=== PATIENT | male | born 1945 | race Caucasian/White ===

== ENCOUNTER 2020-07-09 09:27 | Outpatient (REF) | payer BC, SELFPAY ==
[2020-07-09 11:20] LABS: MANUAL DIFF FLAG NO
[2020-07-09 11:34] LABS: Basophils Percent Auto 0.7 % (0-2); Eosinophils Absolute Auto 0.2 X10*3/uL (0.0-0.4); Eosinophils Percent Auto 3.4 % (0-4); Glucose Urine UA NEG (NEG); Hematocrit 46.2 % (42-52); Hemoglobin 15.6 g/dl (14.0-18.0); Imm Gran Abs Auto 0.01 X10*3/uL (0.00-0.03); Imm Gran Pct Auto 0.2 % (0.0-0.4); Leukocyte Esterase Urine NEG (NEG); Lymphocytes Absolute Auto 1.4 X10*3/uL (1.2-4.9); Lymphocytes Percent Auto 23.3 % (20-40); Mean Corpuscular HGB Conc 33.8 g/dl (31.0-36.0); Mean Corpuscular Hemoglobin 30.3 pg (27.0-33.0); Mean Corpuscular Volume 89.7 fL (80-98); Mean Platelet Volume 10.7 fL (9.4-12.4); Monocytes Absolute Auto 0.5 X10*3/uL (0.1-1.2); Monocytes Percent Auto 8.1 % (2-11); Neutrophils Absolute Auto 3.8 X10*3/uL (2.0-8.3); Neutrophils Percent Auto 64.3 % (45-73); Nitrite Urine NEG (NEG); Platelet Count 247 X10*3/uL (160-400); Red Blood Count 5.15 X10*6/uL (4.60-5.80); Red Cell Distribution Width 12.1 % (11.0-16.0); Urine Blood NEG (NEG); Urine Ketones NEG (NEG); Urine Protein NEG (NEG-TRACE); White Blood Count 5.9 X10*3/uL (4.8-10.8)
[2020-07-09 11:38] LABS: Appearance Urine CLEAR; Color Urine YELLOW
[2020-07-09 11:52] LABS: RBC Urine 0-2 /HPF (0); Squamous Epithelial Cell Urine TRACE /LPF; WBC Urine 0-2 /HPF (0-4)
[2020-07-09 11:59] LABS: Alanine Aminotransferase 39 U/L (0-40); Albumin Level 4.8 g/dL (3.5-5.0); Alkaline Phosphatase 103 U/L (39-117); Anion Gap 13 (12-20); Aspartate Amino Transferase 21 U/L (5-37); Blood Urea Nitrogen 26 mg/dL (9-16); Calcium 9.3 mg/dL (8.4-10.2); Carbon Dioxide 29 mmol/L (22-29); Chloride 107 mmol/L (96-108); Cholesterol 134 mg/dL; Estimated Glomerular Filt Rate > 60; Glucose Fasting 127 mg/dL (60-99); HDL Cholesterol 31 mg/dL; LDL Cholesterol Calculated 87 mg/dl; Potassium 4.2 mmol/L (3.3-5.1); Sodium 145 mmol/L (135-145); Triglycerides 84 mg/dL
[2020-07-09 12:12] LABS: Creatinine Urine 106.52 mg/dL
[2020-07-09 12:23] LABS: Prostate Specific Antigen 4.89 ng/mL (<0.05-4.0); Thyroid Stimulating Hormone 3.33 uIU/mL (0.32-4.0)
[2020-07-09 13:05] LABS: Estimated Average Glucose 151 mg/dL; Hemoglobin A1c % 6.9 %
== END 2020-07-09 09:28 | disposition home or self-care (01) ==
LOC: HO.HMGCLDS 09:27
PROVIDERS: PCP Internal Medicine; Visit Provider Internal Medicine
DX: I10 Essential (primary) hypertension (principal); E78.00 Pure hypercholesterolemia, unspecified; R73.02 Impaired glucose tolerance (oral); R97.20 Elevated prostate specific antigen [PSA]; Z12.5 Encounter for screening for malignant neoplasm of prostate
CPT/HCPCS: 36415; 80053; 80061; 81001; 82043; 83036; 84153; 84443; 85025

== ENCOUNTER 2020-10-01 10:10 | Outpatient (REF) | payer BC, SELFPAY ==
[2020-10-01 11:41] LABS: Estimated Average Glucose 148 mg/dL; Hemoglobin A1c % 6.8 %
[2020-10-01 12:14] LABS: Alanine Aminotransferase 28 U/L (0-40); Albumin Level 4.6 g/dL (3.5-5.0); Alkaline Phosphatase 105 U/L (39-117); Anion Gap 14 (12-20); Aspartate Amino Transferase 18 U/L (5-37); Bilirubin Total 1.1 mg/dL (0.0-1.0); Blood Urea Nitrogen 24 mg/dL (9-16); Calcium 9.5 mg/dL (8.4-10.2); Carbon Dioxide 29 mmol/L (22-29); Chloride 106 mmol/L (96-108); Cholesterol 109 mg/dL; Estimated Glomerular Filt Rate > 60; Glucose Fasting 130 mg/dL (60-99); HDL Cholesterol 31 mg/dL; LDL Cholesterol Calculated 64 mg/dl; Potassium 4.7 mmol/L (3.3-5.1); Sodium 144 mmol/L (135-145); Total Protein 6.8 g/dL (6.5-8.0); Triglycerides 74 mg/dL
[2020-10-01 12:18] LABS: Prostate Specific Antigen 4.88 ng/mL (<0.05-4.0); Thyroid Stimulating Hormone 2.21 uIU/mL (0.32-4.0)
== END 2020-10-01 10:11 | disposition home or self-care (01) ==
LOC: HO.HMGCLDS 10:10
PROVIDERS: PCP Internal Medicine; Visit Provider Internal Medicine
DX: I10 Essential (primary) hypertension (principal); E78.00 Pure hypercholesterolemia, unspecified; R73.02 Impaired glucose tolerance (oral); R97.20 Elevated prostate specific antigen [PSA]; Z12.5 Encounter for screening for malignant neoplasm of prostate
CPT/HCPCS: 36415; 80053; 80061; 83036; 84153; 84443

== ENCOUNTER 2021-04-30 09:14 | Outpatient (REF) | payer BC, SELFPAY ==
[2021-04-30 11:21] LABS: MANUAL DIFF FLAG NO
[2021-04-30 11:24] LABS: Appearance Urine CLEAR; Color Urine STRAW; Glucose Urine UA NEG (NEG); Leukocyte Esterase Urine NEG (NEG); Nitrite Urine NEG (NEG); Specific Gravity - Urine 1.015 (1.005-1.025); Urine Blood NEG (NEG); Urine Ketones NEG (NEG); Urine Protein NEG (NEG-TRACE)
[2021-04-30 11:34] LABS: Basophils Percent Auto 0.3 % (0-2); Eosinophils Absolute Auto 0.1 X10*3/uL (0.0-0.4); Eosinophils Percent Auto 2.4 % (0-4); Hematocrit 46.3 % (42.0-52.0); Hemoglobin 15.5 g/dl (14.0-18.0); Imm Gran Abs Auto 0.02 X10*3/uL (0.00-0.03); Imm Gran Pct Auto 0.3 % (0.0-0.4); Lymphocytes Absolute Auto 1.2 X10*3/uL (1.2-4.9); Lymphocytes Percent Auto 20.5 % (20-40); Mean Corpuscular HGB Conc 33.5 g/dl (31.0-36.0); Mean Corpuscular Hemoglobin 30.2 pg (27.0-33.0); Mean Corpuscular Volume 90.3 fL (80.0-98.0); Mean Platelet Volume 10.3 fL (9.4-12.4); Monocytes Absolute Auto 0.5 X10*3/uL (0.1-1.2); Neutrophils Percent Auto 68.5 % (45-73); Platelet Count 239 X10*3/uL (160-400); Red Blood Count 5.13 X10*6/uL (4.60-5.80); Red Cell Distribution Width 12.2 % (11.0-16.0); White Blood Count 5.8 X10*3/uL (4.8-10.8)
[2021-04-30 11:40] LABS: Estimated Average Glucose 154 mg/dL
[2021-04-30 11:48] LABS: Alanine Aminotransferase 26 U/L (0-40); Albumin Level 4.6 g/dL (3.5-5.0); Alkaline Phosphatase 116 U/L (39-117); Anion Gap 13 (12-20); Aspartate Amino Transferase 17 U/L (5-37); Blood Urea Nitrogen 24 mg/dL (9-16); Calcium 9.7 mg/dL (8.4-10.2); Carbon Dioxide 27 mmol/L (22-29); Chloride 108 mmol/L (96-108); Cholesterol 127 mg/dL; Estimated Glomerular Filt Rate 53; Glucose Fasting 138 mg/dL (60-99); HDL Cholesterol 33 mg/dL; LDL Cholesterol Calculated 75 mg/dl; Potassium 4.3 mmol/L (3.3-5.1); Sodium 144 mmol/L (135-145); Total Protein 7.2 g/dL (6.5-8.0); Triglycerides 99 mg/dL
[2021-04-30 12:00] LABS: RBC Urine 0-2 /HPF (0); WBC Urine 0-2 /HPF (0-4)
[2021-04-30 12:08] LABS: Creatinine Urine 87.22 mg/dL; Microalbum/Creatinine Ratio Ur 14.9 ug/mg cr
[2021-04-30 12:12] LABS: PSA,Total (Free>4and<10) 6.59 ng/mL (0.00-4.00)
[2021-05-02 12:41] LABS: Percent Free Prostate Spec Ag 19 % (calc) (>25); Prostate Specific Ag Total 5.3 ng/mL (< OR = 4.0)
== END 2021-04-30 09:15 | disposition home or self-care (01) ==
LOC: HO.HMGCLDS 09:14
PROVIDERS: PCP Internal Medicine; Visit Provider Internal Medicine
DX: I10 Essential (primary) hypertension (principal); E78.00 Pure hypercholesterolemia, unspecified; R73.02 Impaired glucose tolerance (oral); R97.20 Elevated prostate specific antigen [PSA]; Z12.5 Encounter for screening for malignant neoplasm of prostate
CPT/HCPCS: 36415; 80053; 80061; 81001; 82043; 83036; 84153; 84154; 84443; 85025

== ENCOUNTER 2021-05-01 09:00 | Outpatient (RCR) | payer BC, SELFPAY | END 2021-06-03 09:18 | disposition home or self-care (01) | LOC: HO.PT 09:00 | PROVIDERS: Visit Provider Internal Medicine | DX: M54.16 Radiculopathy, lumbar region (principal) | CPT/HCPCS: 97110; 97140; 97161 ==

== ENCOUNTER 2021-07-29 08:59 | Outpatient (REF) | payer BC, SELFPAY ==
[2021-07-29 11:38] LABS: Appearance Urine HAZY; Color Urine YELLOW; Glucose Urine UA NEG (NEG); Leukocyte Esterase Urine NEG (NEG); Nitrite Urine NEG (NEG); Urine Blood NEG (NEG); Urine Ketones NEG (NEG); Urine Protein NEG (NEG-TRACE)
[2021-07-29 12:03] LABS: Mucus Urine 1+ /LPF; Squamous Epithelial Cell Urine TRACE /LPF; WBC Urine 0-2 /HPF (0-4)
[2021-07-29 12:10] LABS: Alanine Aminotransferase 22 U/L (0-40); Albumin Level 4.3 g/dL (3.5-5.0); Alkaline Phosphatase 102 U/L (39-117); Anion Gap 13 (12-20); Aspartate Amino Transferase 19 U/L (5-37); Bilirubin Total 0.8 mg/dL (0.0-1.0); Blood Urea Nitrogen 20 mg/dL (9-16); Calcium 9.5 mg/dL (8.4-10.2); Carbon Dioxide 27 mmol/L (22-29); Chloride 107 mmol/L (96-108); Estimated Glomerular Filt Rate 58; Glucose Fasting 120 mg/dL (60-99); Potassium 4.4 mmol/L (3.3-5.1); Sodium 143 mmol/L (135-145); Total Protein 6.7 g/dL (6.5-8.0)
[2021-07-29 12:26] LABS: Estimated Average Glucose 146 mg/dL; Hemoglobin A1c % 6.7 %
[2021-07-29 12:33] LABS: PSA,Total (Free>4and<10) 5.29 ng/mL (0.00-4.00)
[2021-07-30 14:42] LABS: Free Prostate Spec Ag 1.1 ng/mL; Percent Free Prostate Spec Ag 24 % (calc) (>25); Prostate Specific Ag Total 4.5 ng/mL (< OR = 4.0)
== END 2021-07-29 09:00 | disposition home or self-care (01) ==
LOC: HO.HMGCLDS 08:59
PROVIDERS: PCP Internal Medicine; Visit Provider Internal Medicine
DX: Z12.5 Encounter for screening for malignant neoplasm of prostate (principal); R97.20 Elevated prostate specific antigen [PSA]; R73.02 Impaired glucose tolerance (oral); R31.29 Other microscopic hematuria
CPT/HCPCS: 36415; 80053; 81001; 83036; 84153; 84154

== ENCOUNTER 2021-10-22 08:31 | Outpatient (REF) | payer BC, SELFPAY ==
[2021-10-22 11:11] LABS: MANUAL DIFF FLAG NO
[2021-10-22 11:36] LABS: Estimated Average Glucose 137 mg/dL; Hemoglobin A1c % 6.4 %
[2021-10-22 11:40] LABS: Appearance Urine CLEAR; Color Urine YELLOW; Glucose Urine UA NEG (NEG); Leukocyte Esterase Urine NEG (NEG); Nitrite Urine NEG (NEG); Specific Gravity - Urine 1.015 (1.005-1.025); Urine Blood NEG (NEG); Urine Ketones NEG (NEG); Urine Protein NEG (NEG-TRACE)
[2021-10-22 11:42] LABS: Basophils Percent Auto 0.5 % (0-2); Eosinophils Absolute Auto 0.2 X10*3/uL (0.0-0.4); Hematocrit 43.3 % (42.0-52.0); Hemoglobin 14.4 g/dl (14.0-18.0); Imm Gran Abs Auto 0.02 X10*3/uL (0.00-0.03); Imm Gran Pct Auto 0.3 % (0.0-0.4); Lymphocytes Absolute Auto 1.4 X10*3/uL (1.2-4.9); Lymphocytes Percent Auto 23.3 % (20-40); Mean Corpuscular HGB Conc 33.3 g/dl (31.0-36.0); Mean Corpuscular Hemoglobin 30.3 pg (27.0-33.0); Mean Platelet Volume 10.5 fL (9.4-12.4); Monocytes Absolute Auto 0.5 X10*3/uL (0.1-1.2); Monocytes Percent Auto 8.9 % (2-11); Neutrophils Absolute Auto 3.8 x10*3/uL (2.0-8.3); Platelet Count 203 X10*3/uL (160-400); Red Blood Count 4.76 X10*6/uL (4.60-5.80); Red Cell Distribution Width 12.2 % (11.0-16.0)
[2021-10-22 11:47] LABS: Alanine Aminotransferase 24 U/L (0-40); Albumin Level 4.5 g/dL (3.5-5.0); Alkaline Phosphatase 95 U/L (39-117); Anion Gap 16 (12-20); Aspartate Amino Transferase 19 U/L (5-37); Bilirubin Total 0.9 mg/dL (0.0-1.0); Blood Urea Nitrogen 31 mg/dL (9-16); Calcium 9.8 mg/dL (8.4-10.2); Carbon Dioxide 23 mmol/L (22-29); Chloride 106 mmol/L (96-108); Cholesterol 124 mg/dL; Estimated Glomerular Filt Rate 48; Glucose Fasting 129 mg/dL (60-99); HDL Cholesterol 30 mg/dL; LDL Cholesterol Calculated 78 mg/dl; Potassium 4.5 mmol/L (3.3-5.1); Sodium 140 mmol/L (135-145); Total Protein 7.1 g/dL (6.5-8.0); Triglycerides 84 mg/dL
[2021-10-22 11:59] LABS: PSA,Total (Free>4and<10) 6.54 ng/mL (0.00-4.00); Thyroid Stimulating Hormone 3.04 uIU/mL (0.32-4.0); Vitamin D 25-OH Total 30.7 ng/mL (>30)
[2021-10-22 12:05] LABS: RBC Urine 0 /HPF (0); Renal Epithelial Cells Urine TRACE /LPF; Squamous Epithelial Cell Urine TRACE /LPF; WBC Urine 0 /HPF (0-4)
[2021-10-22 12:06] LABS: Microalbum/Creatinine Ratio Ur 11.3 ug/mg cr
[2021-10-23 11:41] LABS: Free Prostate Spec Ag 1.7 ng/mL; Percent Free Prostate Spec Ag 24 % (calc) (>25); Prostate Specific Ag Total 7.1 ng/mL (< OR = 4.0)
== END 2021-10-22 08:32 | disposition home or self-care (01) ==
LOC: HO.HMGCLDS 08:31
PROVIDERS: PCP Internal Medicine; Visit Provider Internal Medicine
DX: Z12.5 Encounter for screening for malignant neoplasm of prostate (principal); I10 Essential (primary) hypertension; E78.00 Pure hypercholesterolemia, unspecified; R73.02 Impaired glucose tolerance (oral); R97.20 Elevated prostate specific antigen [PSA]
CPT/HCPCS: 36415; 80053; 80061; 81001; 82043; 82306; 83036; 84153; 84154; 84443; 85025

== ENCOUNTER 2022-01-31 09:28 | Inpatient (IN) | payer MEDICARE, BC, SELFPAY ==
[2022-01-31] VITALS (7 sets, daily range): BP systolic 94–119; BP diastolic 45–65; PULSE 92–116; RESP 16–20; TEMP 36.4–36.6; O2SAT 95–100; BMI 25.0
--- NOTE | ~2022-01-31 | CT_ITS ---
EXAMINATION: CT-GUIDED DRAINAGE CT-GUIDED BIOPSY CLINICAL INFORMATION: Left upper quadrant mass and ascites. COMPARISON: Previous CT of the abdomen and pelvis 01/31/2022. TECHNIQUE: The procedure risks and benefits including bleeding, infection and injury to adjacent organs or bowel is discussed with the patient and informed consent was obtained. Axial images through the abdomen were performed. The left lateral lower abdomen was prepped and draped in a cyst in the usual sterile fashion. The skin and soft tissues were anesthetized with 1% lidocaine plain. Using CT guidance and a 5 Telugu Yueh needle, access to the ascitic fluid was obtained and 2 L of serosanguineous fluid was removed. Specimen was sent for cytology, flow cytometry and microbiology studies. The left upper quadrant was prepped and draped in the usual sterile fashion. The skin and soft tissues were anesthetized with 1% lidocaine plain. Using CT guidance and a coaxial system, access to the left upper quadrant mass was obtained. Two 20-gauge core biopsies were obtained and placed in formalin and flow cytometry solution. There was brisk bleeding following a second core biopsy and additional samples were not obtained. Hemostasis was achieved using 2 Gelfoam pledgets. The patient received Versed 2 mg and fentanyl 100 mcg intravenously during the procedure. Total sedation time was 23 minutes. Conscious sedation was provided by registered nurse under my direct supervision with continuous hemodynamic monitoring. Patient dose 277 mGy-cm. FINDINGS: There is a left upper quadrant mass inseparable from the stomach spleen and pancreas. There is retroperitoneal lymphadenopathy. There is a moderate amount of ascites. There is a tiny gallstone. There is a left renal stone. Postprocedure imaging demonstrated interval decrease in ascites. No evidence of hemorrhage post left upper quadrant biopsy is seen. CT/CT biopsy abdomen percutaneous IMPRESSION: CT guided paracentesis and left upper quadrant biopsy.
--- NOTE | ~2022-01-31 | CT_ITS ---
EXAMINATION: CT ABDOMEN AND PELVIS WITHOUT CONTRAST CLINICAL INFORMATION: Diffuse abdominal pain. COMPARISON: May 03, 2009. TECHNIQUE: Multidetector volumetric imaging was performed from the superior aspect of the liver through the pubic symphysis. Sagittal and coronal reformatted images were obtained on the technologist's workstation. This CT examination was performed using dose optimization techniques as appropriate, variously including the following: *Automated exposure control *Adjustment of mA and/or kV according to patient size (this includes techniques or standardized protocols for targeted exams where dose is matched to indication/reason for exam; i.e. extremities or head) *Use of iterative reconstruction technique DLP: 602 mGy-cm FINDINGS: Limited by lack of oral and intravenous contrast as well as by motion. LUNG BASES: The lung bases appear clear, with no evidence of inflammation or nodules. LIVER, GALLBLADDER, AND BILIARY TREE: The liver appears unremarkable in size, shape, and attenuation. No focal hepatic lesion or biliary ductal dilatation is appreciated. Unremarkable appearance of the gallbladder. PANCREAS/SPLEEN/GASTROINTESTINAL TRACT/MESENTERY/PERITONEAL CAVITY/LYMPH NODES: Roughly 18 x 15 x 12 cm, lobulated, poorly defined left upper quadrant mass, not well evaluated on this noncontrast study. There are loss of fat planes between the mass, spleen, body and tail the pancreas, and gastric fundus. The epicenter of the mass appears located in the retroperitoneum in the region of the splenic hilum/posterior aspect of the tail the pancreas. There or in innumerable peritoneal and omental implants as well as omental caking throughout the abdomen. There is a small to moderate amount of ascites. Significant adenopathy is most notable in the para-aortic region, with a para-aortic node measuring up to approximately 3.8 cm in short axis (image 41, series 3). Sigmoid and descending colonic diverticulosis without obvious evidence of diverticulitis. Normal-appearing distal ileum. Nonspecific submucosal fat involving the ascending colon and hepatic flexure. ADRENAL GLANDS: Unremarkable KIDNEYS AND URETERS: The kidneys appear unremarkable in size, shape, and attenuation. Bilateral, punctate, nonobstructing renal collecting system stones. No evidence of hydronephrosis or hydroureter on either side. Nonspecific bilateral perinephric stranding. BLADDER: Unremarkable ABDOMINAL WALL: Right inguinal hernia containing a small amount of fluid and possible soft tissue density/mass. VASCULAR: Unremarkable PELVIC VISCERA: Moderately enlarged prostate, incompletely imaged. OSSEOUS STRUCTURES: Unremarkable CT/CT abdomen pelvis wo IV con IMPRESSION: Limited by lack of oral and intravenous contrast as well as by motion. Extensive malignant disease within the abdomen as detailed above. Findings include a large 18 x 15 x 12 cm, lobulated, poorly defined left upper quadrant mass with loss of fat planes between the mass, spleen, body and tail the pancreas, and gastric fundus. The epicenter of the mass appears located in the retroperitoneum in the region of the splenic hilum/posterior aspect of the tail the pancreas. Innumerable peritoneal and omental implants as well as omental caking throughout the abdomen. Adenopathy. Small to moderate amount of ascites. Right inguinal hernia containing a small amount of fluid and possible soft tissue density/mass.
[2022-01-31 11:32] LABS: MANUAL DIFF FLAG NO
[2022-01-31 11:33] LABS: Basophils Absolute Auto 0.1 X10*3/uL (0.0-0.2); Basophils Percent Auto 0.5 % (0-2); Eosinophils Absolute Auto 0.1 X10*3/uL (0.0-0.4); Eosinophils Percent Auto 1.1 % (0-4); Hematocrit 41.1 % (42.0-52.0); Hemoglobin 13.6 g/dl (14.0-18.0); Imm Gran Abs Auto 0.05 X10*3/uL (0.00-0.03); Imm Gran Pct Auto 0.4 % (0.0-0.4); Lymphocytes Absolute Auto 0.7 X10*3/uL (1.2-4.9); Lymphocytes Percent Auto 6.2 % (20-40); Mean Corpuscular HGB Conc 33.1 g/dl (31.0-36.0); Mean Corpuscular Hemoglobin 29.8 pg (27.0-33.0); Mean Corpuscular Volume 89.9 fL (80.0-98.0); Mean Platelet Volume 9.7 fL (9.4-12.4); Monocytes Percent Auto 8.9 % (2-11); Neutrophils Absolute Auto 9.6 x10*3/uL (2.0-8.3); Neutrophils Percent Auto 82.9 % (45-73); Platelet Count 386 X10*3/uL (160-400); Red Blood Count 4.57 X10*6/uL (4.60-5.80); Red Cell Distribution Width 12.6 % (11.0-16.0); White Blood Count 11.6 X10*3/uL (4.8-10.8)
--- NOTE | 2022-01-31 11:53 | ED_ITS ---
HPI - General Adult General Chief complaint: General Medical Stated complaint: lymphoma/not eating or drinking Time Seen by Provider: 01/31/22 11:53 Source: patient Mode of arrival: ambulatory Limitations: no limitations History of Present Illness HPI narrative: 76-year-old male past medical history significant for hypertension presenting to the emergency department with complaints of weakness, fatigue, poor p.o. intake x1 week. patient tells me he has not been feeling well and he has been sleeping throughout the majority of the day. He tells me his last normal meal was about a week ago. He tells me he does not have much of an appetite and he feels extremely weak. He reports night sweats that drenched his bed. Reports a 5 lb weight loss in 2 weeks. He also reports that he feels like his abdomen i s bloated. He tells me that he recently had a CT scan of the abdomen which showed retroperitoneal mass that abrupt the pancreas and may invade the spleen. He tells me he is scheduled for a biopsy on Wednesday. He is followed by [facility]. Patient tells me he is really not feeling himself and he feels awful. He is accompanied by his who helps provide some history. Patient denies chest pain, shortness of breath, nausea, vomiting, , headache, dizziness. He tells me he usually has a very active lifestyle however over the past few weeks he has been very sedentary. Related Data Allergies Allergy/AdvReac Type Severity Reaction Status Date / Time Unable to Assess Allergy Unverified 01/31/22 12:26 Review of Systems Review of Systems: Constitutional : No Weight loss, No Fever, No Chills, + Fatigue, + Malaise ENT/Mouth : No sore throat, No Rhinorrhea Eyes: No Eye Pain, No Swelling, No Redness Cardiovascular : No Chest Pain, No SOB, No Dyspnea on Exertion, No Orthopnea, No Edema, No Palpitations Respiratory : No Cough, No Sputum, No Wheezing Gastrointestinal : No Nausea, No Vomiting, No Diarrhea, No Constipation, + abdominal Pain/ bloating, No Hematochezia, No Melena Genitourinary : No Dysuria, No Urinary Frequency, No Hematuria, Musculoskeletal : No joint pain, No Myalgias, No Joint Swelling Skin : No Skin Lesions, No rash Neuro : + Weakness, No Numbness, No Dizziness, No Headache Psych : No Anxiety/Panic, No Depression All other systems reviewed and are negative Yes all other systems are reviewed and are negative [facility] Past Medical History Attestation statement: The following information was validated with the patient. Source: old records reviewed and nursing notes reviewed Medical History (Updated 01/31/22 @ 14:29 by CELESTE Boucher) HTN (hypertension) Hyperlipemia Surgical History (Updated 01/31/22 @ 13:02 by Paola Pino RN) History of prostate biopsy Social History Social History Patient Tobacco Use Status: Never used Tobacco Use of substances other than those prescribed or required for medical reasons: No Advance Directives: Yes Advance Directives Information Provided: Yes Advance Directives on File: No Physical Exam ED Vital Signs: Vital Signs - 24 hr 01/31/22 09:32 01/31/22 13:03 01/31/22 14:28 Temperature 98 F Pulse Rate 116 H 102 H 97 Respiratory Rate 19 18 18 Blood Pressure 119/61 115/65 113/60 Pulse Oximetry 98 95 96 Oxygen Delivery Method Room Air Room Air Room Air BMI result Body Mass Index 25.0 vss Appearance: Alert.? Oriented X3.? No acute distress.? Head: Normocephalic, atraumatic, no step-offs or deformities Eyes: Pupils equal, round and reactive to light.? ENT: Pharynx normal.? Neck: Normal inspection.? Neck supple.? CVS: Normal heart rate and rhythm.? Pulses normal.? Respiratory: No respiratory distress.? Breath sounds normal.? Abdomen: Soft and + difusley tender and bloated. Normal BS? Skin: Skin warm and dry.? Normal skin color.? Normal skin turgor.? Extremities: No lower extremity edema.? No calf ttp. 5/5 strength to bilateral upper and lower extremities Back: No midline tenderness, no C-spine tenderness, full range of motion, no CVA tenderness bilaterally Neuro: Oriented X 3.? No motor deficit.? No sensory deficit. CN 2-12 intact Course Reevaluation(s) Reevaluation #1: Patient is noted to have a slight leukocytosis and a very mild normocytic anemia. potassium is noted to be elevated at 6.2, low, will be given at this time. Patient is noted to have a an anion gap of 28, likely secondary to poor p.o. intake, dehydration. Patient is also noted to have a significantly elevated BUN and creatinine concerning for acute kidney injury likely secondary to dehydration. Calcium and lipase is also noted to be elevated. CT of abdomen and pelvis and UA pending. Time: 12:44 Reevaluation #2: CT of the abdomen with concerns for maligancy TT out to Dr. Acosta Oncology. Plan is to admit patient for malaise, fatigue, ARYA, new malignancy. Time: 14:37 Reevaluation #3: TT from Dave recommends adding tumor markers CA 19/19, CEA, LDH and PSA . Also recommends IR guided biopsy, hospitalist will put this order in. Time: 14:52 Medical Decision Making [facility] Narrative Medical decision making narrative: 1156 76-year-old male presents with feelings of dehydration, decreased p.o. intake I requested records from [facility] to obtain more information on this patient with patient consent. Physical examination is significant for diffusely tender abdomen, with bloating. Plan at this time is to obtain basic labs, urine, COVID test. Will rule out electrolyte abnormalities. I suspect this is dehydration concern for mass or malignancy. Medical Records Medical records reviewed: Yes I reviewed the patient's medical records. Lab Data Lab results reviewed: Yes I reviewed the patient's lab results. Result diagrams: 01/31/22 11:29 01/31/22 11:29 Labs: Lab Results 01/31/22 01/31/22 Range/Units 11:29 11:29 WBC 11.6 H (4.8-10.8) X10*3/uL RBC 4.57 L (4.60-5.80) X10*6/uL Hgb 13.6 L (14.0-18.0) g/dl Hct 41.1 L (42.0-52.0) % MCV 89.9 (80.0-98.0) fL MCH 29.8 (27.0-33.0) pg MCHC 33.1 (31.0-36.0) g/dl RDW 12.6 (11.0-16.0) % Plt Count 386 D (160-400) X10*3/uL MPV 9.7 (9.4-12.4) fL Immature Gran % (Auto) 0.4 (0.0-0.4) % Neut % (Auto) 82.9 H (45-73) % Lymph % (Auto) 6.2 L (20-40) % [place] % (Auto) 8.9 (2-11) % Eos % (Auto) 1.1 (0-4) % Baso % (Auto) 0.5 (0-2) % Lymph # (Auto) 0.7 L (1.2-4.9) X10*3/uL [place] # (Auto) 1.0 (0.1-1.2) X10*3/uL Eos # (Auto) 0.1 (0.0-0.4) X10*3/uL Baso # (Auto) 0.1 (0.0-0.2) X10*3/uL Abs Immat Gran (auto) 0.05 H (0.00-0.03) X10*3/uL Absolute Neuts (auto) 9.6 H (2.0-8.3) x10*3/uL Absolute Nucleated RBC 0.000 (0.0-0.012) X10*3/uL Nucleated RBC % (auto) 0.0 (0.0-0.2) /100WBC Sodium 140 (135-145) mmol/L Potassium 6.2 H* D (3.3-5.1) mmol/L Chloride 102 (96-108) mmol/L Carbon Dioxide 16 L (22-29) mmol/L Anion Gap 28 H (12-20) BUN 71 H D (9-16) mg/dL Creatinine 3.03 H (0.5-1.4) mg/dL Estim Creat Clear Calc 23.4 Estimated GFR 20 Random Glucose 117 H (60-115) mg/dL Calcium 13.3 H* D (8.4-10.2) mg/dL Total Bilirubin 0.6 (0.0-1.0) mg/dL Direct Bilirubin 0.3 (0.0-0.5) mg/dL AST 44 H D (5-37) U/L ALT 30 (0-40) U/L Alkaline Phosphatase 139 H D (39-117) U/L Total Protein 6.7 (6.5-8.0) g/dL Albumin 4.0 (3.5-5.0) g/dL Lipase 91 H (8-78) U/L Critical Care Time Critical Care Time Critical Care Time: Yes Total Critical Care Time: 60 Attestation: I attest to this time spent taking care of the patient, obtaining history, physical, reviewing labs, imaging, speaking to my attending, speaking to specialist. Discharge Plan Discharge Clinical Impression: ARYA (acute kidney injury), Acute hyperkalemia, Dehydration, Abdominal mass, Poor nutrition Patient Disposition: Admitted As Inpatient
[2022-01-31 12:09] LABS: Alanine Aminotransferase 30 U/L (0-40); Alkaline Phosphatase 139 U/L (39-117); Anion Gap 28 (12-20); Aspartate Amino Transferase 44 U/L (5-37); Bilirubin Direct 0.3 mg/dL (0.0-0.5); Bilirubin Total 0.6 mg/dL (0.0-1.0); Blood Urea Nitrogen 71 mg/dL (9-16); Calcium 13.3 mg/dL (8.4-10.2); Carbon Dioxide 16 mmol/L (22-29); Chloride 102 mmol/L (96-108); Creatinine Clr Calc Pharmacy 23.4; Estimated Glomerular Filt Rate 20; Glucose Random 117 mg/dL (60-115); Lipase 91 U/L (8-78); Potassium 6.2 mmol/L (3.3-5.1); Sodium 140 mmol/L (135-145); Total Protein 6.7 g/dL (6.5-8.0)
--- NOTE | 2022-01-31 12:27 | ECG_ITS ---
Test Reason : cp Blood Pressure : / mmHG Vent. Rate : 100 BPM Atrial Rate : 100 BPM P-R Int : 132 ms QRS Dur : 130 ms QT Int : 378 ms P-R-T Axes : 053 021 -03 degrees QTc Int : 487 ms Normal sinus rhythm Right bundle branch block Abnormal ECG No previous ECGs available Referred By: Carlos Reese Electronically Signed By:MIKE HENDERSON
[2022-01-31] MEDS: 0.9 % Sodium Chloride 1,000 ML 999 ML IV ×2 (13:08→14:26)
[2022-01-31] MEDS: Sodium Zirconium Cyclosilicate 10 GM POWD.PACK PO (13:11)
[2022-01-31 15:02] LABS: VBG Base Excess -7.9 mmol/L; VBG HCO3 15 mmol/L (22-26); VBG pCO2 27 mmHg; VBG pH 7.36 (7.32-7.43); VBG pO2 67 mmHg
[2022-01-31 15:04] LABS: Venous Blood Gas Refer to POC result
--- NOTE | 2022-01-31 15:06 | PHA.MEDREC ---
Pharmacy Consult ? Medication Reconciliation Pharmacy has completed the medication reconciliation.
[2022-01-31 15:47] LABS: Carcinoembryonic Antigen < 0.50 ng/mL; Prostate Specific Antigen 11.27 ng/mL (<0.05-4.0)
--- NOTE | 2022-01-31 15:53 | PM.IMHP ---
History of Present Illness Date of Service: 01/31/22 Attending physician on admission: Eva Tellez Chief Complaint: ARYA, hyperkalemia, retroperitoneal mass 76 year old patient with history significant for htn with ckd stage 3, hld, and elevated psa as well as large retroperitoneal mass suggestive of lymphoma requiring biopsy presented to the ED today at the recommendation of PCP for evaluation of malaise, subjective fevers, sweats, unintentional weight loss 5 pounds, decreased oral intake ongoing for about 2 weeks. Pt has been following with urologist (Ute SOOD) for elevated PSA of 7.1 which pt reports has improved. Has negative prostate bx in 2019. Has had MRI abd/pelvis that was negative for prostate cancer. Then had follow up U/S abd 12/23/21 at [facility] showing multiple circumscribed hypoechoic masses scattered throughout the liver. Follow up CT abd w/ IV contrast 01/01 showed 11.9 x 6.7 x 6.8 cm retroperitoneal mass abutting the pancreas and abutting/possibly invading the spleen as well as addl splenic lesions and left-soded para-aortic adenopathy. Given the appearance lymphoma is favored, but biopsy is recommended . He was scheduled to have biopsy this upcoming Wednesday at [facility]. In the ED, CT abd/pelvis repeated showing CT abd/pelvis showing extensive metastatic disease within the abdomen including 18cm x 15cm x 12cm, lobulated, poorly defined LUQ mass with loss of fat planes between the mass, spleen, and body/tail of the pancreas, and gastric fundus. Epicenter of the mass appears to be located in the retroperitoneum in razia region of the splenic hylum/posterior aspect of the tail of the pancreas. Innumerable peritoneal and omental ikmplants as well as omental caking throughout the abdomen implants. Small to moderate ascites. Patient also found to have ARYA with Creat 3.03 and BUN 71. K 6.2, calcium 13.3. Alk phos 139. AG 28. VBG normal. Received 2L IVF in ED and lokelpr. LDH 1960. Review of Systems Review of Systems: General: +fever, +chills/sweats, +unintentional weight loss., +malaise Cardiovascular: No chest pain, palpitations, or leg edema Respiratory: No shortness of breath, wheezing, cough GI: No abdominal pain, nausea, vomiting, diarrhea, constipation, melena, hematochezia : No dysuria, hematuria, decreased urinary output, weak stream MSK: No pain Neuro: No headaches, weakness, paresthesias Skin: No rashes or lesions [facility] Medical History HTN (hypertension) Hyperlipemia Surgical History History of prostate biopsy Social History Patient Tobacco Use Status: Never used Tobacco Use of substances other than those prescribed or required for medical reasons: No Advance Directives: Yes Advance Directives Information Provided: Yes Advance Directives on File: No service: Yes Current occupational status: retired [employer] Allergies Allergy/AdvReac Type Severity Reaction Status Date / Time Unable to Assess Allergy Unverified 01/31/22 12:26 Active Medications: Current Medications Acetaminophen (Acetaminophen Supp 650 Mg Supp.Rect) 650 mg HI Q6H PRN PRN Reason: Pain, Mild (Pain Scale 1-3) Heparin Sodium (Porcine) (Heparin Sodium,Porcine 5,000 Unit/Ml Vial) 5,000 unit SUBCUT Q12H RYLEE Sodium Chloride (Ns) 1,000 mls @ 125 mls/hr IVCONT .Q8H RYLEE Ondansetron HCl (Ondansetron Hcl 4 Mg/2 Ml Vial) 4 mg IVPUSH Q8H PRN PRN Reason: Nausea and Vomiting Home Medications Medication Instructions Recorded Confirmed Last Taken Type atorvastatin 40 mg tablet 1 tab PO DAILY 02/01/22 02/01/22 Unknown History lisinopril 20 mg tablet 1 tab PO DAILY 02/01/22 02/01/22 Unknown History Physical Exam Vital Signs and Narrative: Vital Signs: Last Vital Signs Temp 98 F 01/31/22 09:32 Pulse 97 01/31/22 14:28 Resp 18 01/31/22 14:28 BP 113/60 01/31/22 14:28 Pulse Ox 96 01/31/22 14:28 O2 Del Method 01/31/22 14:28 BMI result Body Mass Index 25.0 Constitutional - Awake and Alert, No apparent distress Eyes - PERRLA, EOMI Cardiovascular - S1S2, RRR, No edema Respiratory - Normal lung expansion, Normal respiratory effort, No respiratory distress, CTA bilaterally Gastrointestinal - Mild abdominal distention with fluid wave. NT; +BS; No rebound or guarding Extremities - no calf tenderness bilaterally, no swelling Musculoskeletal - Normal inspection, normal ROM Skin - Warm/Dry Neurological - Alert & oriented x3, No focal deficit Psychological - Appropriate affect Results Labs CBC and Chem 7: 01/31/22 11:29 02/01/22 06:37 Labs: Laboratory Results - last 24 hr 01/31/22 01/31/22 01/31/22 11: 11:29 14:56 MCV 89.9 MCH 29.8 MCHC 33.1 RDW 12.6 Plt Count 386 D MPV 9.7 Immature Gran % (Auto) 0.4 Neut % (Auto) 82.9 H Lymph % (Auto) 6.2 L [place] % (Auto) 8.9 Eos % (Auto) 1.1 Baso % (Auto) 0.5 Lymph # (Auto) 0.7 L [place] # (Auto) 1.0 Eos # (Auto) 0.1 Baso # (Auto) 0.1 Abs Immat Gran (auto) 0.05 H Absolute Neuts (auto) 9.6 H Absolute Nucleated RBC 0.000 Nucleated RBC % (auto) 0.0 VBG pH 7.36 VBG pCO2 27 VBG pO2 67 VBG HCO3 15 L VBG O2 Saturation 92.0 VBG Base Excess -7.9 Anion Gap 28 H Estim Creat Clear Calc 23.4 Estimated GFR 20 Random Glucose 117 H Calcium 13.3 H* D Total Bilirubin 0.6 Direct Bilirubin 0.3 AST 44 H D ALT 30 Alkaline Phosphatase 139 H D Lactate Dehydrogenase 1924 H Total Protein 6.7 Albumin 4.0 Lipase 91 H Carcinoembryonic Ag < 0.50 Prostate Specific Ag 11.27 H Imaging Radiologist's Impressions: Impressions Abdomen/Pelvis CT 01/31/22 12:48 IMPRESSION: Limited by lack of oral and intravenous contrast as well as by motion. Extensive malignant disease within the abdomen as detailed above. Findings include a large 18 x 15 x 12 cm, lobulated, poorly defined left upper quadrant mass with loss of fat planes between the mass, spleen, body and tail the pancreas, and gastric fundus. The epicenter of the mass appears located in the retroperitoneum in the region of the splenic hilum/posterior aspect of the tail the pancreas. Innumerable peritoneal and omental implants as well as omental caking throughout the abdomen. Adenopathy. Small to moderate amount of ascites. Right inguinal hernia containing a small amount of fluid and possible soft tissue density/mass. 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 1-Hyperkalemia- secondary to ARYA. K 6.2 in ED -Received lokelma in ED -No peaked T waves on EKG -Ordered 5 units regular insulin, 1 amp D50, 10mg albuterol -Recheck K and follow BMP daily -Renal consulted 2-Hypercalcemia- secondary to ARYA vs metastatic disease -PTH-I, PTH related peptide, and VIt D level ordered -UA ordered 3-ARYA- secondary to dehydration from poor PO intake -Received 2L IVF in ED -Contineu IVF -Follow BMP -Renal consulted 4-Retroperitoneal mass- CT abd/pelvis showing extensive metastatic disease within the abdomen including 18cm x 15cm x 12cm, lobulated, poorly defined LUQ mass with loss of fat planes between the mass, spleen, and body/tail of the pancreas, and gastric fundus. Epicenter of the mass appears to be located in the retroperitoneum in razia region of the splenic hylum/posterior aspect of the tail of the pancreas. Innumerable peritoneal and omental ikmplants as well as omental caking throughout the abdomen implants. Small to moderate ascites. -TT with Dr. Acosta. Tumor markers ordered. Ct guided bx with IR ordered for wednesday. NPO after midnight Wednesday. -LDH significantly elevated at 1960 suggestive of tumor lysis. Uric acid 25.5. Phosphorus 6.8. Rasburicase ordered. Monitor BMP, phosphorus, and uric acid every 6 hours 5-HTN- stable -Hold lisinopril 6-HLD -Continue atorvastatin DVT prophylaxis- heparin Full code Pt requires inpt stay of at least 2 midnights for management of ARYA with electrolyte abnormality for IV fluids and close monitoring for elevtrolyte abnormality as pt is as risk for cardiac arrhythmia and shows evidence of tumor lysis. Quality Stroke Does the patient have a stroke diagnosis?: No VTE Prior VTE?: No VTE Risk Level:: Medical - moderate - high VTE Device Contraindication: Treatment Not Indicated VTE Drug Contraindication: N/A - Med Ordered
[2022-01-31] MEDS: Albuterol Sulfate 7.5 MG, Albuterol Sulfate (0.083%) 2.5 MG 10 MG INHALE (15:57)
[2022-01-31] MEDS: Heparin Sodium,Porcine 5,000 UNIT/ML VIAL 5000 UNIT SUBCUT (16:09)
[2022-01-31 16:12] LABS: Lactate Dehydrogenase 1960 U/L (118-273); Phosphorus 6.8 mg/dL (2.7-4.5); Uric Acid 25.5 mg/dL (3.4-7.0)
[2022-01-31] MEDS: 0.9 % Sodium Chloride 1,000 ML 125 ML IVCONT (16:15)
[2022-01-31] MEDS: Insulin Regular, Human 100 UNIT/ML 3 ML VIAL IVPUSH (16:21)
[2022-01-31] MEDS: Dextrose 50 % 25 GM/50 ML SYRINGE IVPUSH (16:22)
--- NOTE | 2022-01-31 16:32 | P.EN_ITS ---
Event Note Date of Service: 02/01/22 Event Note: Addendum to history and physical by mid-level provider CELESTE Minor. I interviewed and examined the patient. I discussed their presentation and management with the mid-level provider. I reviewed the history and physical and agree with the documentation, with the following additions and corrections: 76yo M with known retroperitoneal mass + B-symptoms presenting with weakness/fatigue/anorexia. CT shows a large retroperitoneal mass that has grown to 18 cm from 11 cm back in October at [facility]. He was scheduled for outpt biopsy at [facility] on 02/02 but is found to have features concerning for spontaneous TLS: hyperK (6.2), hyperPO4 (6.8), LDH 1960, marked hyperuricemia (25.5), and ARYA with SCr 3.03. Also moderately hypercalcemic (13.3). Discussed with on-call oncologist Dr Acosta. Plan [place] [facility] Will give aggressive IV hydration + IV rasburicase. Monitor BMP, phosphorous, uric acid 6hr after rasburicase and again in AM. Consult Nephrology. CT-guided biopsy for Friday 02/02.
[2022-01-31 16:49] LABS: Anion Gap 26 (12-20); Blood Urea Nitrogen 70 mg/dL (9-16); Calcium 12.2 mg/dL (8.4-10.2); Carbon Dioxide 16 mmol/L (22-29); Chloride 107 mmol/L (96-108); Creatinine Clr Calc Pharmacy 25.6; Estimated Glomerular Filt Rate 23; Glucose Random 99 mg/dL (60-115); Potassium 5.5 mmol/L (3.3-5.1); Sodium 143 mmol/L (135-145)
[2022-01-31 17:13] LABS: Vitamin D 25-OH Total 19.2 ng/mL (>30)
[2022-01-31] MEDS: Rasburicase 6 MG in 0.9 % Sodium Chloride 46 ML 100 MG IV (18:14)
--- NOTE | 2022-01-31 22:30 | ECG_ITS ---
Test Reason : LOW BP Blood Pressure : / mmHG Vent. Rate : 097 BPM Atrial Rate : 097 BPM P-R Int : 138 ms QRS Dur : 134 ms QT Int : 378 ms P-R-T Axes : 149 -27 -27 degrees QTc Int : 480 ms Normal sinus rhythm Right bundle branch block Abnormal ECG When compared with ECG of 31-JAN-2022 14:20, No significant change was found Referred By: Lindsay Minor Electronically Signed By:MIKE HENDERSON
[2022-01-31] MEDS: Lactated Ringers 1,000 ML 999 ML IV (22:37)
[2022-01-31 22:41] LABS: COVID-19 Test Negative (Negative); IDNOW Serial# 16C4AD1C
[2022-02-01] MEDS: 0.9 % Sodium Chloride 1,000 ML 125 ML IVCONT ×3 (00:03→16:41)
[2022-02-01 01:08] LABS: Appearance Urine Clear; Color Urine Yellow; Glucose Urine UA Negative (Negative); Leukocyte Esterase Urine Trace (Negative); Nitrite Urine Negative (Negative); Specific Gravity - Urine 1.015 (1.005-1.025); Urine Blood Negative (Negative); Urine Ketones Negative (Negative); Urine Protein Negative (Neg-Trace)
[2022-02-01 01:23] LABS: Bacteria Urine None Seen (None Seen); RBC Urine 0-2 /HPF (0-2); Squamous Epithelial Cell Urine 0-2 /HPF (0-2)
[2022-02-01 01:27] LABS: Anion Gap 23 (12-20); Blood Urea Nitrogen 71 mg/dL (9-16); Calcium 11.4 mg/dL (8.4-10.2); Carbon Dioxide 18 mmol/L (22-29); Chloride 106 mmol/L (96-108); Creatinine Clr Calc Pharmacy 25.6; Estimated Glomerular Filt Rate 23; Glucose Random 97 mg/dL (60-115); Phosphorus 5.1 mg/dL (2.7-4.5); Potassium 4.9 mmol/L (3.3-5.1); Sodium 142 mmol/L (135-145)
[2022-02-01] MEDS: Heparin Sodium,Porcine 5,000 UNIT/ML VIAL 5000 UNIT SUBCUT (03:58)
[2022-02-01 04:00] VITALS: BP 120/67; PULSE 99; RESP 16; TEMP 36.6; O2SAT 98
[2022-02-01 07:22] LABS: Anion Gap 21 (12-20); Blood Urea Nitrogen 70 mg/dL (9-16); Calcium 11.5 mg/dL (8.4-10.2); Carbon Dioxide 18 mmol/L (22-29); Chloride 108 mmol/L (96-108); Creatinine Clr Calc Pharmacy 27.1; Estimated Glomerular Filt Rate 24; Glucose Random 88 mg/dL (60-115); Phosphorus 4.7 mg/dL (2.7-4.5); Potassium 5.1 mmol/L (3.3-5.1); Sodium 142 mmol/L (135-145)
[2022-02-01 07:26] LABS: Uric Acid for Rasburicase 14.5 mg/dL
[2022-02-01 07:44] VITALS: BP 136/71; PULSE 104; RESP 18; O2SAT 97
[2022-02-01 07:49] LABS: Lactate Dehydrogenase 1501 U/L (118-273)
[2022-02-01] MEDS: Atorvastatin Calcium 40 MG TABLET PO (08:09)
--- NOTE | 2022-02-01 09:24 | PM.CNNEP ---
History of Present Illness Reason for Consult Consult date: 02/01/22 Chief Complaint Chief complaint: Wt loss, night sweats, abnormal labs History of Present Illness Narrative: Jr is a 76 yo man with hx of HTN and hyperlipidemia being admitted now with ARYA, hyperkalemia, hypercalcemia and concern for TLS. He had been seeing a URologist over the past weeks for microscopic hematuria. Cysto was negative but imaging revealed a retroperitoneal mass. Plans were underway for outpt biopsy but has not yet occurred. He comes in with malaise, wt loss and decrease in po intake. He has noted abdominal distention, constipation and urinary frequency. Upon arrive, he has ARYA with creat 2.7 and hyperkalemia as well as an AG acidosis. CT done here without contrast yesterday shows a large left upperquadrant retroperitoneal mass. The kidneys show punctate calcifications but no hydronephrosis. He has no abdominal or back pain. He has had a 6 lb weight loss and night sweats. Review of Systems Comments: weight loss night sweats Comments: no change in vision Comments: no sore throat or diff swallowin Comments: no chest pain, PNd or orthopnea, no palpitations Comments: NO SOB or cough Comments: abdominal bloating constipation no abd pain or epigastric pain Comments: No gross heme Micro heme no diff voiding urinary frequency and nocturia Comments: denies myalgias or arthralgias Comments: No headaches, confusion, AMS or focal neuro deficits PMFSH Past Medical History Medical History HTN (hypertension) Hyperlipemia Family History Pertinent family history: denies fh of kidney disease Surgical History Surgical History History of prostate biopsy Social History Social History Patient Tobacco Use Status: Never used Tobacco Use of substances other than those prescribed or required for medical reasons: No Advance Directives: Yes Advance Directives Information Provided: Yes Advance Directives on File: No Meds Allergies Allergy/AdvReac Type Severity Reaction Status Date / Time Unable to Assess Allergy Unverified 01/31/22 12:26 Active Medications: Current Medications Acetaminophen (Acetaminophen Supp 650 Mg Supp.Rect) 650 mg WA Q6H PRN PRN Reason: Pain, Mild (Pain Scale 1-3) Atorvastatin Calcium (Atorvastatin Calcium 40 Mg Tablet) 40 mg PO DAILY [facility] Last Admin: 02/01/22 08:09 Dose: 40 mg Heparin Sodium (Porcine) (Heparin Sodium,Porcine 5,000 Unit/Ml Vial) 5,000 unit SUBCUT Q12H [facility] Last Admin: 02/01/22 03:58 Dose: 5,000 unit Sodium Chloride (Ns) 1,000 mls @ 125 mls/hr IVCONT .Q8H [facility] Last Admin: 02/01/22 07:43 Dose: 125 mls/hr Ondansetron HCl (Ondansetron Hcl 4 Mg/2 Ml Vial) 4 mg IVPUSH Q8H PRN PRN Reason: Nausea and Vomiting Home Medications Medication Instructions Recorded Confirmed Last Taken Type atorvastatin 40 mg tablet 1 tab PO DAILY 02/01/22 02/01/22 Unknown History lisinopril 20 mg tablet 1 tab PO DAILY 02/01/22 02/01/22 Unknown History Physical Exam Vital Signs: Last Vital Signs Temp 97.8 F 02/01/22 04:00 Pulse 104 H 02/01/22 07:44 Resp 18 02/01/22 07:44 BP 136/71 02/01/22 07:44 Pulse Ox 97 02/01/22 07:44 O2 Del Method 02/01/22 07:44 BMI result Body Mass Index 25.0 Const Other: Looks ill chronically Pale, sallow HEENT Other: NOrmal exam, PERRLA and EOM normal Neck Other: NO adenopathy Chest Other: Clear to auscultation Cardio Other: RRR, hyperdynamic, no murmur, no JVD, no rub GI Other: Abdominal distension, soft and nontender to palpation with normal bowel sounds, fluid wave is present Skin Other: Pallor Neuro Other: Oriented times 3 and appropriate nail maker are intact No focal weakness Extrem Other: No leg edema noted Results Lab Results Result Diagrams: 01/31/22 11:29 02/01/22 06:37 Lab results: Chemistry 01/31/22 01/31/22 02/01/22 16:19 00:45 Sodium 140 143 142 Potassium 6.2 H* D 5.5 H 4.9 Carbon Dioxide 16 L 16 L 18 L BUN 71 H D 70 H 71 H Creatinine 3.03 H 2.77 H 2.77 H Calcium 13.3 H* D 12.2 H D 11.4 H D Phosphorus 6.8 H 5.1 H 02/01/22 06:37 Sodium 142 Potassium 5.1 Carbon Dioxide 18 L BUN 70 H Creatinine 2.62 H Calcium 11.5 H Phosphorus 4.7 H Hematology 01/31/22 11:29 WBC 11.6 H Hgb 13.6 L Plt Count 386 D Urinalysis 02/01/22 01:01 Urine Color Yellow Urine Appearance Clear Urine pH 5.0 Ur Specific [place] 1.015 Urine Protein Negative Urine Glucose (UA) Negative Urine Ketones Negative Urine Blood Negative Urine Nitrite Negative Ur Leukocyte Esterase Trace H Urine RBC 0-2 Urine WBC 6-10 H Ur Squamous Epith Cells 0-2 Hyaline Casts 6-[address]: Radiologist's impression: 18 cm retroperitoneal mass LUQ, no hydronephrosis Assessment and Plan (1) ARYA (acute kidney injury): Status: Acute ARYA in this patient is due to multiple factors: 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 Despite the lack of hydronephrosis at present, it is possible with RTP disease and adenopathy that he has compression of the ureters leading to high pressure collecting system also impairing glomerular filtration (2) Acute hyperkalemia: Status: Acute This is most likely due to TLS leading to cell lysis and release of potassium from intracellular space, as well as transcell shift of potassium due to acidemia and impaired secretion of potassium due to hypovolemia and poor distal delivery of sodium while also on ROSIE I impairing aldosterone stimulation (3) Metabolic acidosis: Status: Acute HIs AG is quite high and consistent with TLS; check lactic acid, certainly a component of AG acidosis due to ARYA but out of proportion to just that cause (4) Hypercalcemia: Status: Acute 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
--- NOTE | 2022-02-01 10:22 | MHC.CM.PN ---
Patient lives in a house with his and he required no services nor DME CLERICAL MANAGER. Home, self care is the goal and CM has initiated and will follow for dc planning. Patient has received Moderna vax x4 and his PCP is Dr. Ry Contreras.
--- NOTE | 2022-02-01 10:47 | PC.NURSE ---
Pt A&Ox4, no complaints of pain at this time. OOB to BR with no assistance, IV running with fluids as per MAR orders. Linened changed by this RN. Call jauregui within reach. Will continue to monitor.
[2022-02-01 12:18] LABS: INTERNATIONAL NORM RATIO 1.1 (0.9-1.1); Prothrombin Time 12.3 SEC (10.0-13.1)
[2022-02-01 12:39] LABS: Anion Gap 21 (12-20); Blood Urea Nitrogen 68 mg/dL (9-16); Calcium 11.7 mg/dL (8.4-10.2); Carbon Dioxide 18 mmol/L (22-29); Chloride 108 mmol/L (96-108); Creatinine Clr Calc Pharmacy 28.6; Estimated Glomerular Filt Rate 26; Glucose Random 88 mg/dL (60-115); Phosphorus 4.4 mg/dL (2.7-4.5); Potassium 5.4 mmol/L (3.3-5.1); Sodium 142 mmol/L (135-145)
--- NOTE | 2022-02-01 12:42 | HO.PM.IMPN ---
Subjective Subjective Date of Service: 02/01/22 Interval History: Other than poor appetite, no symptoms K normalized, uric acid and SCr coming down Review of Systems Review of Systems: Yes all other systems are reviewed and are negative Physical Exam Vital Signs: Vital Signs: Last Vital Signs Temp 97.8 F 02/01/22 04:00 Pulse 104 H 02/01/22 07:44 Resp 18 02/01/22 07:44 BP 136/71 02/01/22 07:44 Pulse Ox 97 02/01/22 07:44 O2 Del Method 02/01/22 07:44 BMI result Body Mass Index 25.0 Gen: in no acute distress HEENT: sclera anicteric, moist mucus membranes Neck: supple Lungs: clear to auscultation bilaterally Heart: regular rate and rhythm, no murmurs Abd: soft, non-tender, fluid wave present Ext: no edema Skin: warm/well-perfused Neuro: alert and oriented x3, no focal findings Psych: appropriate affect Objective Data Active Medications Acetaminophen (Acetaminophen Supp 650 Mg Supp.Rect) 650 mg [place] Q6H PRN PRN Reason: Pain, Mild (Pain Scale 1-3) Allopurinol (Allopurinol 100 Mg Tablet) 100 mg PO Q8H [facility] Atorvastatin Calcium (Atorvastatin Calcium 40 Mg Tablet) 40 mg PO DAILY [facility] Last Admin: 02/01/22 08:09 Dose: 40 mg Documented By: SPENCER Heparin Sodium (Porcine) (Heparin Sodium,Porcine 5,000 Unit/Ml Vial) 5,000 unit SUBCUT Q12H [facility] Last Admin: 02/01/22 03:58 Dose: 5,000 unit Documented By: ANDRIA Sodium Chloride (Ns) 1,000 mls @ 175 mls/hr IVCONT .Q5H43M [facility] Last Admin: 02/01/22 07:43 Dose: 125 mls/hr Documented By: SPENCER Ondansetron HCl (Ondansetron Hcl 4 Mg/2 Ml Vial) 4 mg IVPUSH Q8H PRN PRN Reason: Nausea and Vomiting Labs CBC & Chem 7: 01/31/22 11:29 02/01/22 12:03 Labs: Laboratory Results - last 24 hr 01/31/22 01/31/22 01/31/22 11:29 14:56 16:19 PT INR VBG pH 7.36 VBG pCO2 27 VBG pO2 67 VBG HCO3 15 L VBG O2 Saturation 92.0 VBG Base Excess -7.9 Anion Gap 26 H Estim Creat Clear Calc 25.6 Estimated GFR 23 Random Glucose 99 Uric Acid 25.5 H Calcium 12.2 H D Phosphorus 6.8 H Lactate Dehydrogenase 1960 H Carcinoembryonic Ag < 0.50 Prostate Specific Ag 11.27 H 25-OH Vitamin D Total Urine Color Urine Appearance Urine pH Ur Specific [place] Urine Protein Urine Glucose (UA) Urine Ketones Urine Blood Urine Nitrite Ur Leukocyte Esterase Urine RBC Urine WBC Ur Squamous Epith Cells Urine Bacteria Hyaline Casts Uric Pt Rasburicase COVID-19 ([facility]YLER) COVID-19 [employer] Com 01/31/22 01/31/22 02/01/22 16:19 20:20 00:45 PT INR VBG pH VBG pCO2 VBG pO2 VBG HCO3 VBG O2 Saturation VBG Base Excess Anion Gap 23 H Estim Creat Clear Calc 25.6 Estimated GFR 23 Random Glucose 97 Uric Acid Calcium 11.4 H D Phosphorus 5.1 H Lactate Dehydrogenase 1501 H Carcinoembryonic Ag Prostate Specific Ag 25-OH Vitamin D Total 19.2 Urine Color Urine Appearance Urine pH Ur Specific [place] Urine Protein Urine Glucose (UA) Urine Ketones Urine Blood Urine Nitrite Ur Leukocyte Esterase Urine RBC Urine WBC Ur Squamous Epith Cells Urine Bacteria Hyaline Casts Uric Pt Rasburicase COVID-19 ([facility]ER) Negative COVID-[employer]24 Com See Note 02/01/22 02/01/22 02/01/22 01:01 06:37 06:37 PT INR VBG pH VBG pCO2 VBG pO2 VBG HCO3 VBG O2 Saturation VBG Base Excess Anion Gap 21 H Estim Creat Clear Calc 27.1 Estimated GFR 24 Random Glucose 88 Uric Acid Calcium 11.5 H Phosphorus 4.7 H Lactate Dehydrogenase Carcinoembryonic Ag Prostate Specific Ag 25-OH Vitamin D Total Urine Color Yellow Urine Appearance Clear Urine pH 5.0 Ur Specific [place] 1.015 Urine Protein Negative Urine Glucose (UA) Negative Urine Ketones Negative Urine Blood Negative Urine Nitrite Negative Ur Leukocyte Esterase Trace H Urine RBC 0-2 Urine WBC 6-10 H Ur Squamous Epith Cells 0-2 Urine Bacteria None Seen Hyaline Casts 6-10 Uric Pt Rasburicase 14.5 COVID-19 ([facility]) COVID-[employer] Com 02/01/22 02/01/22 12:03 12:03 PT 12.3 INR 1.1 VBG pH VBG pCO2 VBG pO2 VBG HCO3 VBG O2 Saturation VBG Base Excess Anion Gap 21 H Estim Creat Clear Calc 28.6 Estimated GFR 26 Random Glucose 88 Uric Acid Calcium 11.7 H Phosphorus 4.4 Lactate Dehydrogenase Carcinoembryonic Ag Prostate Specific Ag 25-OH Vitamin D Total Urine Color Urine Appearance Urine pH Ur Specific [place] Urine Protein Urine Glucose (UA) Urine Ketones Urine Blood Urine Nitrite Ur Leukocyte Esterase Urine RBC Urine WBC Ur Squamous Epith Cells Urine Bacteria Hyaline Casts Uric Pt Rasburicase COVID-19 ([facility]ER) COVID-19 Clin Com Assessment and Plan (1) Tumor lysis syndrome: Status: Acute (2) ARYA (acute kidney injury): Status: Acute (3) Hypercalcemia: Status: Acute Plan hospital d#2 76yo M with HTN + HLD, recently diagnosed with retroperitoneal mass, presenting with B-symptoms and 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 # tumor lysis syndrome - got 1 dose rasburicase yesterday and uric acid has come down from 26 to 12; start renally-dosed allopurinol; monitor BMP/PO4/LDH/uric acid # retroperitoneal mass - CT-guided biopsy tomorrow, NPO after midnight, Oncology consultation # ARYA - Nephrology involved, will increase isotonic fluid rate, SCr improving, hold lisinopril # hyperK - give another dose of Lokelma today, hold lisinopril # hyperCa - suspected hypergalcemia of malignancy, iPTH + PTHrP pending, improving with IV fluid hydration, to consider pamidronate # HLD - statin # VTE ppx: UFH In my clinical judgment, the patient requires continued hospitalization for the following reasons: electrolyte monitoring, IV fluids Quality Stroke Does the patient have a stroke diagnosis?: No VTE Prior VTE?: No VTE Risk Level:: Medical - moderate - high VTE Device Contraindication: Treatment Not Indicated VTE Drug Contraindication: N/A - Med Ordered
[2022-02-01 12:43] LABS: Uric Acid for Rasburicase 12.1 mg/dL
[2022-02-01 13:03] VITALS: BP 118/69; PULSE 101; RESP 22; O2SAT 95
[2022-02-01] MEDS: Sodium Zirconium Cyclosilicate 10 GM POWD.PACK PO (14:17)
[2022-02-01] MEDS: allopurinoL 100 MG TABLET PO ×2 (14:17→19:39)
--- NOTE | 2022-02-01 14:22 | PM.HEMONCCN ---
Subjective - Subjective Chief complaint: Consult for: Intra-abdominal malignancy. 2. Tumor lysis syndrome. Patient: new to practice Consult date: 02/01/22 Requesting Physician: Geoff Primary Care Provider: Ry Contreras DO Medical Summary: DIAGNOSIS: 1. INTRA-ABDOMINAL MALIGNANCY. 2. ACUTE TUMOR LYSIS SYNDROME. HPI - Consult Narrative Reason for consult: Consult for: 1. Intra-abdominal malignancy. 2. Tumor lysis syndrome. Narrative: Jr Blanco is a pleasant 76 year old gentleman, presented to the ED on 01/31, at the recommendation of PCP for evaluation of malaise, subjective fevers, sweats as well as unintentional weight loss 5 pounds, decreased oral intake ongoing for about 2 weeks. He was recently noted to have a large retroperitoneal mass suggestive of lymphoma requiring biopsy, In addition he has been following with urologist (Ute SOOD) for elevated PSA of 7.1 This has improved. He had a negative prostate bx in 2019. Has had MRI abd/pelvis that was negative for prostate cancer. He had a follow up U/S abd 12/23/21 at [facility] showing multiple circumscribed hypoechoic masses scattered throughout the liver. Follow up CT abd w/ IV contrast 01/01 showed; A 11.9 x 6.7 x 6.8 cm retroperitoneal mass abutting the pancreas and abutting/possibly invading the spleen as well as addl splenic lesions and left-soded para-aortic adenopathy. Given the appearance lymphoma is favored, but biopsy is recommended. He was actually scheduled to have biopsy this upcoming Wednesday at [facility]. In the ED, CT abd/pelvis repeated showing CT abd/pelvis showing extensive metastatic disease within the abdomen including 18cm x 15cm x 12cm, lobulated, poorly defined LUQ mass with loss of fat planes between the mass, spleen, and body/tail of the pancreas, and gastric fundus. Epicenter of the mass appears to be located in the retroperitoneum in the region of the splenic hilum/posterior aspect of the tail of the pancreas. Innumerable peritoneal and omental implants as well as omental caking throughout the abdomen implants. Small to moderate ascites. Patient also found to have ARYA with Creat 3.03 and BUN 71. K 6.2, calcium 13.3. Alk phos 139. AG 28. VBG normal. LDH 1960. He received 2L IVF in ED and lokelpr. Review of Systems Review of Systems: General: +fever, +chills/sweats, +unintentional weight loss., +malaise Cardiovascular: No chest pain, palpitations, or leg edema Respiratory: No shortness of breath, wheezing, cough GI: No abdominal pain, nausea, vomiting, diarrhea, constipation, melena, hematochezia : No dysuria, hematuria, decreased urinary output, weak stream MSK: No pain Neuro: No headaches, weakness, paresthesias Skin: No rashes or lesions [facility] Medical History: Significant for: 1. ckd stage 3, hld, 2. Elevated psa 3. HTN (hypertension) 4. Hyperlipemia Surgical History: History of prostate biopsy Social History: Patient Tobacco Use Status: Never used Tobacco Use of substances other than those prescribed or required for medical reasons: No Advance Directives: Yes Advance Directives Information Provided: Yes Advance Directives on File: No service: Yes Current occupational status: retired Review of Systems - Constitutional Reports system reviewed and no additional complaints, except as documented, Reports anorexia, Reports body ache(s), Reports chills, Reports fatigue, Reports lack of energy, Reports malaise, Reports night sweats, Reports poor appetite, Reports weakness, Reports weight loss - Eyes Reports system reviewed and no additional complaints, except as documented - ENT Reports system reviewed and no additional complaints, except as documented - Cardiovascular Reports system reviewed and no additional complaints, except as documented - Respiratory Reports no additional respiratory complaints - Gastrointestinal Reports system reviewed and no additional complaints, except as documented - Genitourinary Genitourinary: Reports no additional male genitourinary complaints - Musculoskeletal Reports system reviewed and no additional complaints, except as documented - Integumentary/Breasts Skin/Breast: Reports no additional skin complaints - Neurologic Reports system reviewed and no additional complaints, except as documented - Psychiatric Reports system reviewed and no additional complaints, except as documented - Endocrine Reports no additional endocrine complaints - Hematologic/Lymphatic Reports system reviewed and no additional complaints, except as documented - Allergic/Immunologic Reports system reviewed and no additional complaints, except as documented Oncology Screenings - ECOG Performance Status ECOG Performance Status: 2 [facility] Medical History: Medical History (Last Reviewed 02/01/22 @ 09:31 by Randa Lara MD) HTN (hypertension) Hyperlipemia Functional capacity: wheelchair bound Patient : No Surgical History: Surgical History (Last Reviewed 02/01/22 @ 09:32 by Randa Lara MD) History of prostate biopsy Social History: Social History (Last Reviewed 02/01/22 @ 09:31 by Randa Lara MD) Living Situation History: Household Members: Spouse Housing: House Do you presently have visiting nurse or other home services: No Tobacco History: Patient Tobacco Use Status: Never used Tobacco e-Cigarette/Vaping Use: Never Used Advance Directives: Advance Directives Date on File: 02/02/22 Occupation Assessmet: service: Yes Current occupational status: retired Home Medications and Allergies Current Medications: Current Medications Acetaminophen (Acetaminophen Supp 650 Mg Supp.Rect) 650 mg CO Q6H PRN PRN Reason: Pain, Mild (Pain Scale 1-3) Allopurinol (Allopurinol 100 Mg Tablet) 100 mg PO Q8H [facility] Last Admin: 02/01/22 14:17 Dose: 100 mg Atorvastatin Calcium (Atorvastatin Calcium 40 Mg Tablet) 40 mg PO DAILY [facility] Last Admin: 02/01/22 08:09 Dose: 40 mg Heparin Sodium (Porcine) (Heparin Sodium,Porcine 5,000 Unit/Ml Vial) 5,000 unit SUBCUT Q12H [facility] Last Admin: 02/01/22 03:58 Dose: 5,000 unit Sodium Chloride (Ns) 1,000 mls @ 200 mls/hr IVCONT .Q5H [facility] Last Admin: 02/01/22 07:43 Dose: 125 mls/hr Ondansetron HCl (Ondansetron Hcl 4 Mg/2 Ml Vial) 4 mg IVPUSH Q8H PRN PRN Reason: Nausea and Vomiting Home Medications Medication Instructions Recorded Confirmed Type atorvastatin 40 mg tablet 1 tab PO DAILY 02/01/22 02/01/22 History Allergies Allergy/AdvReac Type Severity Reaction Status Date / Time No Known Allergies Allergy Verified 02/02/22 10:41 Physical Exam Vital signs: Vital Signs Temp 97.8 F 02/01/22 04:00 Pulse 101 H 02/01/22 13:03 Resp 22 H 02/01/22 13:03 BP 118/69 02/01/22 13:03 Pulse Ox 95 02/01/22 13:03 O2 Del Method 02/01/22 13:03 Intake & Output 09/10/22 09/11/22 09/11/22 18:59 06:59 18:59 Intake Total 2049.000 2480.000 / 4530.000 958.333 / 958.333 Balance 2049.000 2480.000 / 4530.000 958.333 / 958.333 Intake: Intake, Oral Amount 480 / 480 Intake, IV Amount 2049 / 4050.000 2000.000 / 4050.000 958.333 / 958.333 0.9 % Sodium Chloride 1,000 ml 2000 / 2000 @ 999 mls/hr IV .Q1H1M [facility] Rx#: [id number] Lactated Ringers 1,000 ml @ 999 1000 / 1000 mls/hr IV .Q1H1M [facility] Rx#: [id number] Rasburicase 6 mg In 0.9 % 50 / 50 Sodium Chloride 46 ml @ 100 mls /hr IV ONCE ONE Rx#:[id number] 0.9 % Sodium Chloride 1,000 ml 1000.000 / 1000.000 958.333 / 958.333 @ 125 mls/hr IVCONT .Q8H [facility] Rx #:[id number] Other: Number of Unmeasured Voids 2 Urine Urinal Urine Color Yellow Weight 83.915 kg Weight 83.915 kg - Constitutional Present: moderate distress - Routine HEENT Exam Head: Present: normal inspection ENT: Present: mucous membranes moist - Routine Neck Exam Present: supple - Routine Respiratory Exam Present: CTAB - Routine Cardiovascular Exam Cardiovascular: Present: S1, S2 - Routine Abdominal Exam Present: organomegaly, tenderness, nontender - Detailed Abdominal Exam Bowel sounds: hypoactive Palpation/Percussion: Present: ascites - Routine Extremities Exam Present: nontender - Routine Skin Exam Present: intact - Routine Neurological Exam Present: alert, oriented X3 - Detailed Neurological Exam: Coma Scale Eye Opening: Spontaneous (4) Verbal Response: Oriented (5) Motor Response: Obeys commands (6) [place] Coma Scale Total: 15 - Routine Psychiatric Exam Present: normal affect Hem/Onc Consult Result - Labs CBC & Chem 7: 02/03/22 06:10 02/04/22 05:47 Labs: BMP 01/31/22 02/01/22 02/01/22 16:19 00:45 06:37 Sodium 143 142 142 Potassium 5.5 H 4.9 5.1 Chloride 107 106 108 Carbon Dioxide 16 L 18 L 18 L BUN 70 H 71 H 70 H Creatinine 2.77 H 2.77 H 2.62 H Calcium 12.2 H D 11.4 H D 11.5 H 02/01/22 12:03 Sodium 142 Potassium 5.4 H Chloride 108 Carbon Dioxide 18 L BUN 68 H Creatinine 2.48 H Calcium 11.7 H Urine 02/01/22 Range/Units 01:01 Urine Color Yellow Urine Appearance Clear Urine pH 5.0 (5.0-9.0) Ur Specific [place] 1.015 (1.005-1.025) Urine Protein Negative (Neg-Trace) mg/dL Urine Glucose (UA) Negative (Negative) mg/dL Assessment and Plan Patient Active problem list reviewed?: Yes (1) Retroperitoneal mass Status: Acute Assessment and plan: This is a pleasant 76-year-old gentleman who presented for evaluation of malaise, subjective fevers, sweats as well as unintentional weight loss 5 pounds, decreased oral intake ongoing for about 2 weeks. He was recently noted to have a large retroperitoneal mass suggestive of lymphoma requiring biopsy, In addition he has been following with urologist (Ute SOOD) for elevated PSA of 7.1 This has improved. He had a negative prostate bx in 2019. Has had MRI abd/pelvis that was negative for prostate cancer. He had a follow up U/S abd 12/23/21 at [facility] showing multiple circumscribed hypoechoic masses scattered throughout the liver. Follow up CT abd w/ IV contrast 01/01 showed; A 11.9 x 6.7 x 6.8 cm retroperitoneal mass abutting the pancreas and abutting/possibly invading the spleen as well as addl splenic lesions and left-soded para-aortic adenopathy. Given the appearance lymphoma is favored, but biopsy is recommended. He was actually scheduled to have biopsy this upcoming Wednesday at [facility]. In the ED, CT abd/pelvis repeated showing CT abd/pelvis showing extensive metastatic disease within the abdomen including 18cm x 15cm x 12cm, lobulated, poorly defined LUQ mass with loss of fat planes between the mass, spleen, and body/tail of the pancreas, and gastric fundus. Epicenter of the mass appears to be located in the retroperitoneum in the region of the splenic hilum/posterior aspect of the tail of the pancreas. Innumerable peritoneal and omental implants as well as omental caking throughout the abdomen implants. Small to moderate ascites. Patient also found to have ARYA with Creat 3.03 and BUN 71. K 6.2, calcium 13.3. Alk phos 139. AG 28. VBG normal. LDH 1960. 1. Concern is that patient most likely has a lymphoma. It could be an aggressive lymphoma like Burkitt's, with significant organ involvement and elevated LDH. Alternative would be lymphoblastic lymphoma, diffuse large -B-cell lymphoma or T- cell lymphoma, given the hypercalcemia. DIFFERENTIAL DIAGNOSIS: 2. A solid tumor. The patient was already noted to be in tumor lysis syndrome. Uric acid was up to 25 and phosphate upto 6.8. Calcium up to 12.2. PLAN: He has been treated with aggressive IV hydration. He received rasburicase 13 mg yesterday. With that his uric acid has come down to 14. Phosphate is down to 4.3. Calcium down to 11. Will start him on allopurinol renally adjusted: 100 mg q.8 hours. The plan is for him to have a biopsy of the mass tomorrow by IR. Would try to expedite the results, so anti tumor treatment can be started urgently. Plan discussed with patient and Discussed with hospital staff. Thank you for the consult, I will follow along with you, Cc: - Time Spent With Patient Time Spent with Patient (in minutes): 35
[2022-02-01 18:21] VITALS: BP 137/70; PULSE 97; RESP 16; TEMP 36.8; O2SAT 98
[2022-02-01 20:53] VITALS: BP 138/64; PULSE 96; RESP 18; TEMP 37.1; O2SAT 97
[2022-02-01] MEDS: 0.9 % Sodium Chloride 1,000 ML 200 ML IVCONT (21:58)
[2022-02-02] VITALS (10 sets, daily range): BP systolic 119–141; BP diastolic 62–89; PULSE 64–110; RESP 17–103; TEMP 36.4–37.2; O2SAT 93–98; BMI 25.0
[2022-02-02] MEDS: 0.9 % Sodium Chloride 1,000 ML 200 ML IVCONT ×4 (02:44→23:46)
[2022-02-02 06:08] LABS: Hematocrit 35.4 % (42.0-52.0); Hemoglobin 11.4 g/dl (14.0-18.0); Mean Corpuscular HGB Conc 32.2 g/dl (31.0-36.0); Mean Corpuscular Hemoglobin 29.5 pg (27.0-33.0); Mean Corpuscular Volume 91.5 fL (80.0-98.0); Mean Platelet Volume 10.1 fL (9.4-12.4); Platelet Count 302 X10*3/uL (160-400); Red Blood Count 3.87 X10*6/uL (4.60-5.80); Red Cell Distribution Width 13.2 % (11.0-16.0); White Blood Count 9.9 X10*3/uL (4.8-10.8)
[2022-02-02 06:28] LABS: Anion Gap 22 (12-20); Blood Urea Nitrogen 61 mg/dL (9-16); Calcium 11.6 mg/dL (8.4-10.2); Carbon Dioxide 17 mmol/L (22-29); Chloride 112 mmol/L (96-108); Creatinine Clr Calc Pharmacy 32.1; Estimated Glomerular Filt Rate 29; Glucose Random 71 mg/dL (60-115); Lactate Dehydrogenase 1767 U/L (118-273); Phosphorus 4.1 mg/dL (2.7-4.5); Potassium 5.4 mmol/L (3.3-5.1); Sodium 146 mmol/L (135-145)
[2022-02-02 06:30] LABS: Uric Acid for Rasburicase 7.2 mg/dL
--- NOTE | 2022-02-02 07:54 | PC.NURSE ---
Addendum entered by Lori Zhong RN 02/02/22 11:45: IV placed to right forearm not left Original Note: At start of shift, IV found to be leaking and infiltrated. Large area of infiltration noted to right forearm. New 20g IV placed to left forearm. IVF restarted.
[2022-02-02] MEDS: Sodium Zirconium Cyclosilicate 10 GM POWD.PACK PO (10:06)
--- NOTE | 2022-02-02 12:03 | HO.PM.IMPN ---
Subjective Subjective Date of Service: 02/02/22 Interval History: NPO for biopsy Denies pain Endorses fatigue, anorexia, chills Review of Systems Review of Systems: Yes all other systems are reviewed and are negative Physical Exam Vital Signs: Vital Signs: Last Vital Signs Temp 97.6 F 02/02/22 07:36 Pulse 102 H 02/02/22 07:36 Resp 29 H 02/02/22 07:36 BP 124/67 02/02/22 07:36 Pulse Ox 93 02/02/22 07:36 O2 Del Method 02/02/22 07:36 BMI result Body Mass Index 25.0 Gen: in no acute distress HEENT: sclera anicteric, moist mucus membranes Neck: supple Lungs: clear to auscultation bilaterally Heart: regular rate and rhythm, no murmurs Abd: soft, non-tender, fluid wave present Ext: no edema Skin: warm/well-perfused Neuro: alert and oriented x3, no focal findings Psych: appropriate affect Objective Data Active Medications Acetaminophen (Acetaminophen Supp 650 Mg Supp.Rect) 650 mg [place] Q6H PRN PRN Reason: Pain, Mild (Pain Scale 1-3) Allopurinol (Allopurinol 100 Mg Tablet) 100 mg PO Q8H ON LICENSE OF [facility] Last Admin: 02/02/22 10:13 Dose: Not Given Documented By: ANNEAMRIE Non-Admin Reason: NPO Atorvastatin Calcium (Atorvastatin Calcium 40 Mg Tablet) 40 mg PO DAILY ON LICENSE OF [facility] Last Admin: 02/02/22 10:13 Dose: Not Given Documented By: ANNEMARIE Non-Admin Reason: NPO Heparin Sodium (Porcine) (Heparin Sodium,Porcine 5,000 Unit/Ml Vial) 5,000 unit SUBCUT Q12H ON LICENSE OF [facility] Last Admin: 02/01/22 03:58 Dose: 5,000 unit Documented By: ANDRIA Sodium Chloride (Ns) 1,000 mls @ 200 mls/hr IVCONT .Q5H ON LICENSE OF [facility] Last Admin: 02/02/22 10:04 Dose: 200 mls/hr Documented By: ANNEMARIE Ondansetron HCl (Ondansetron Hcl 4 Mg/2 Ml Vial) 4 mg IVPUSH Q8H PRN PRN Reason: Nausea and Vomiting Labs CBC & Chem 7: 02/02/22 05:45 02/02/22 05:45 Labs: Laboratory Results - last 24 hr 02/01/22 02/01/22 02/01/22 12:03 12:03 12:03 MCV MCH MCHC RDW Plt Count MPV Absolute Nucleated RBC Nucleated RBC % (auto) PT 12.3 INR 1.1 Anion Gap 21 H Estim Creat Clear Calc 28.6 Estimated GFR 26 Random Glucose 88 Calcium 11.7 H Phosphorus 4.4 Lactate Dehydrogenase Uric Pt Rasburicase 12.1 02/02/22 02/02/22 02/02/22 05:45 05:45 05:45 MCV 91.5 MCH 29.5 MCHC 32.2 RDW 13.2 Plt Count 302 MPV 10.1 Absolute Nucleated RBC 0.000 Nucleated RBC % (auto) 0.0 PT INR Anion Gap 22 H Estim Creat Clear Calc 32.1 Estimated GFR 29 Random Glucose 71 Calcium 11.6 H Phosphorus 4.1 Lactate Dehydrogenase 1767 H Uric Pt Rasburicase 7.2 Assessment and Plan (1) Tumor lysis syndrome: Status: Acute (2) ARYA (acute kidney injury): Status: Acute (3) Hypercalcemia: Status: Acute Plan hospital d#3 76yo M with HTN + HLD, recently diagnosed with retroperitoneal mass, presenting with B-symptoms and 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 # tumor lysis syndrome - got 1 dose rasburicase on 01/31 then started renally-dosed allopurinol on 02/01; uric acid has come down from 26 to 7; continue to monitor BMP/PO4/LDH/uric acid daily # retroperitoneal mass suspicious for aggressive lymphoma - CT-guided biopsy today, Oncology following # ARYA - Nephrology involved, continue isotonic fluids IV, SCr improving, hold lisinopril # hyperK - give another dose of Lokelma today, hold lisinopril # hyperCa - suspected hypergalcemia of malignancy, iPTH + PTHrP pending, improving with IV fluid hydration, got IV zolendronate yesterday # HLD - statin # VTE ppx: UFH In my clinical judgment, the patient requires continued hospitalization for the following reasons: electrolyte monitoring, IV fluids Quality Stroke Does the patient have a stroke diagnosis?: No VTE Prior VTE?: No VTE Risk Level:: Medical - moderate - high VTE Device Contraindication: Treatment Not Indicated VTE Drug Contraindication: N/A - Med Ordered
--- NOTE | 2022-02-02 13:11 | PC.NURSE ---
LATE ENTRY Per justin Cohen to give Lokelma despite pt being NPO. Medication given with 45mls of water. IR nurse made aware.
--- NOTE | 2022-02-02 15:41 | P.PNNP_ITS ---
Subjective Subjective Date of Service: 02/02/22 Interval history: Seen adnexamiend, events noted Physical Exam Vital Signs: Vital Signs: Last Vital Signs Temp 98.9 F 02/02/22 13:12 Pulse 109 H 02/02/22 13:12 Resp 20 02/02/22 13:12 BP 122/76 02/02/22 13:12 Pulse Ox 94 02/02/22 13:12 O2 Del Method 02/02/22 13:12 BMI result Body Mass Index 25.0 Const: Other: Looks ill chronically Pale, sallow HEENT: Other: NOrmal exam, PERRLA and EOM normal Neck: Other: NO adenopathy Chest: Other: Clear to auscultation Cardio: Other: RRR, hyperdynamic, no murmur, no JVD, no rub GI: Other: Abdominal distension, soft and nontender to palpation with normal bowel sounds, fluid wave is present Skin: Other: Pallor Neuro: Other: Oriented times 3 and appropriate printing press operator are intact No focal weakness Extrem: Other: No leg edema noted Objective Data Labs CBC & Chem 7: 02/02/22 05:45 02/02/22 05:45 Labs: Laboratory Results - last 24 hr 02/02/22 02/02/22 02/02/22 05:45 05:45 05:45 WBC 9.9 RBC 3.87 L Hgb 11.4 L Hct 35.4 L MCV 91.5 MCH 29.5 MCHC 32.2 RDW 13.2 Plt Count 302 MPV 10.1 Absolute Nucleated RBC 0.000 Nucleated RBC % (auto) 0.0 Sodium 146 H Potassium 5.4 H Chloride 112 H Carbon Dioxide 17 L Anion Gap 22 H BUN 61 H Creatinine 2.21 H Estim Creat Clear Calc 32.1 Estimated GFR 29 Random Glucose 71 Calcium 11.6 H Phosphorus 4.1 Lactate Dehydrogenase 1767 H Uric Pt Rasburicase 7.2 Procedures Date of Service Date of Service: 02/02/22 Assessment & Plan Assessment and plan (1) ARYA (acute kidney injury): Status: Acute Assessment and Plan: ARYA in this patient is due to multiple factors: 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 Despite the lack of hydronephrosis at present, it is possible with RTP disease and adenopathy that he has compression of the ureters leading to high pressure collecting system also impairing glomerular filtration (2) Acute hyperkalemia: Status: Acute (3) Metabolic acidosis: Status: Acute (4) Hypercalcemia: Status: Acute Plan 1. ARYA:multifact: c/w TLS, HyperCa and vol depletion along with ROSIE-I; Scr cont decr with IVF and decr CA and decr UA 2. HyperCa: d/t Ca and TLS and dehydration: decr w IVF 3. Hyperuricemia: s/p Uricase x 1 and may need additonal dosing depending on repeat UAL givn the tumor burden and ongoing spont TLS 4. TLS spontaneous d/t large tumor burden 5. Ques Obs uropathy despite absence of hydro can occuer in tumoers like this rajesh prevent the ureter and renal pelvis from dilating d/t encasement--does not appear to be the case 6. HyperK: d/t TLS and prioer ROSIE and ARYA: at rsik for rebounding REC: cont to track UAL and K closely as may need additioanl Tx; cont IVF; if HCO3 decr further will switch to IV NaHCO3 Will follow clsoley with team Time Spent With Patient Time: Total time spent is greater than 50% in coordination of care (as documented) at patient's floor/unit and/or counseling patient: Progress Note: Quality Stroke Does the patient have a stroke diagnosis?: No
--- NOTE | 2022-02-02 16:17 | HO.RADPN ---
RADIOLOGY Narrative Narrative: CT guided left lower quadrant paracentesis performed using 5 fr catheter. 2 L slightly bloody serosanguinous fluid removed. Next LUQ mass core biopsy using coaxial system. 2 20g core biopsies. Very vascular. 2 gelfoam pledgets to achieve hemostasis. Post CT shows no bleeding.
[2022-02-02 17:22] LABS: PTHI <6 pg/mL (16-77)
[2022-02-02 18:08] LABS: Anion Gap 24 (12-20); Calcium 11.3 mg/dL (8.4-10.2); Carbon Dioxide 15 mmol/L (22-29); Chloride 113 mmol/L (96-108); Phosphorus 4.1 mg/dL (2.7-4.5); Sodium 147 mmol/L (135-145)
[2022-02-02 18:19] LABS: Lactate Dehydrogenase 1725 U/L (118-273)
[2022-02-02] MEDS: allopurinoL 100 MG TABLET PO (20:21)
[2022-02-03 03:00] VITALS: BP 133/74; PULSE 86; RESP 20; TEMP 36.5; O2SAT 95
[2022-02-03] MEDS: allopurinoL 100 MG TABLET PO ×3 (04:01→17:21)
[2022-02-03] MEDS: 0.9 % Sodium Chloride 1,000 ML 200 ML IVCONT (04:57)
[2022-02-03 06:30] LABS: Hematocrit 34.1 % (42.0-52.0); Mean Corpuscular HGB Conc 32.3 g/dl (31.0-36.0); Mean Corpuscular Hemoglobin 29.5 pg (27.0-33.0); Mean Corpuscular Volume 91.4 fL (80.0-98.0); Mean Platelet Volume 9.7 fL (9.4-12.4); Platelet Count 288 X10*3/uL (160-400); Red Blood Count 3.73 X10*6/uL (4.60-5.80); Red Cell Distribution Width 13.2 % (11.0-16.0); White Blood Count 10.9 X10*3/uL (4.8-10.8)
[2022-02-03 06:49] LABS: Anion Gap 20 (12-20); Blood Urea Nitrogen 54 mg/dL (9-16); Calcium 11.5 mg/dL (8.4-10.2); Carbon Dioxide 16 mmol/L (22-29); Chloride 114 mmol/L (96-108); Creatinine Clr Calc Pharmacy 35.9; Estimated Glomerular Filt Rate 33; Glucose Random 81 mg/dL (60-115); Lactate Dehydrogenase 1612 U/L (118-273); Lactic Acid 7.4 mmol/L (0.5-2.0); Phosphorus 3.6 mg/dL (2.7-4.5); Potassium 4.8 mmol/L (3.3-5.1); Sodium 145 mmol/L (135-145)
[2022-02-03 07:06] VITALS: BP 136/68; PULSE 102; RESP 20; TEMP 36.3
[2022-02-03 08:02] LABS: Uric Acid for Rasburicase 4.8 mg/dL
[2022-02-03 08:22] LABS: Reflex Lactate? Lactic Acid Added
[2022-02-03 09:06] LABS: ~Lactic Acid-LAB USE ONLY 6.8 mmol/L (0.5-2.0)
--- NOTE | 2022-02-03 09:46 | P.PNIM_ITS ---
Subjective Subjective Date of Service: 02/03/22 Interval History: paracentesis/biopsy done yesterday, no bleeding, no pain uric acid down to 4.8 no fever Review of Systems Review of Systems: Yes all other systems are reviewed and are negative Physical Exam Vital Signs: Vital Signs: Last Vital Signs Temp 97.3 F 02/03/22 07:06 Pulse 102 H 02/03/22 07:06 Resp 20 02/03/22 07:06 BP 136/68 02/03/22 07:06 Pulse Ox 95 02/03/22 03:00 O2 Del Method 02/03/22 07:06 BMI result Body Mass Index 25.0 Gen: in no acute distress HEENT: sclera anicteric, moist mucus membranes Neck: supple Lungs: clear to auscultation bilaterally Heart: regular rate and rhythm, no murmurs Abd: soft, non-tender, fluid wave present Ext: no edema Skin: warm/well-perfused Neuro: alert and oriented x3, no focal findings Psych: appropriate affect Objective Data Active Medications Acetaminophen (Acetaminophen Supp 325 Mg Supp.Rect) 650 mg [place] Q6H PRN PRN Reason: Pain, Mild (Pain Scale 1-3) Allopurinol (Allopurinol 100 Mg Tablet) 100 mg PO Q8H [facility] Last Admin: 02/03/22 04:01 Dose: 100 mg Documented By: JAYME Atorvastatin Calcium (Atorvastatin Calcium 40 Mg Tablet) 40 mg PO DAILY [facility] Last Admin: 02/02/22 10:13 Dose: Not Given Documented By: ANNEMARIE Non-Admin Reason: NPO Heparin Sodium (Porcine) (Heparin Sodium,Porcine 5,000 Unit/Ml Vial) 5,000 unit SUBCUT Q12H [facility] Last Admin: 02/01/22 03:58 Dose: 5,000 unit Documented By: ANDRIA Sodium Bicarbonate 150 meq/ (Dextrose) 1,000 mls @ 125 mls/hr IV .Q8H [facility] Ondansetron HCl (Ondansetron Hcl 4 Mg/2 Ml Vial) 4 mg IVPUSH Q8H PRN PRN Reason: Nausea and Vomiting Labs CBC & Chem 7: 02/03/22 06:10 02/03/22 06:10 Labs: Laboratory Results - last 24 hr 01/31/22 02/02/22 02/03/22 16:19 17:02 06:10 MCV 91.4 MCH 29.5 MCHC 32.3 RDW 13.2 Plt Count 288 MPV 9.7 Absolute Nucleated RBC 0.000 Nucleated RBC % (auto) 0.0 Anion Gap 24 H Estim Creat Clear Calc Estimated GFR Random Glucose Lactic Acid Lactic Acid F/U @ 2Hr Calcium 11.3 H Phosphorus 4.1 Lactate Dehydrogenase 1725 H PTH Intact <6 L Calcium (PTH Intact) 12.0 H Uric Pt Rasburicase 02/03/22 02/03/22 02/03/22 06:10 06:10 06:10 MCV MCH MCHC RDW Plt Count MPV Absolute Nucleated RBC Nucleated RBC % (auto) Anion Gap 20 Estim Creat Clear Calc 35.9 Estimated GFR 33 Random Glucose 81 Lactic Acid 7.4 H* Lactic Acid F/U @ 2Hr Calcium 11.5 H Phosphorus 3.6 Lactate Dehydrogenase 1612 H PTH Intact Calcium (PTH Intact) Uric Pt Rasburicase 4.8 02/03/22 08:32 MCV MCH MCHC RDW Plt Count MPV Absolute Nucleated RBC Nucleated RBC % (auto) Anion Gap Estim Creat Clear Calc Estimated GFR Random Glucose Lactic Acid Lactic Acid F/U @ 2Hr 6.8 H* Calcium Phosphorus Lactate Dehydrogenase PTH Intact Calcium (PTH Intact) Uric Pt Rasburicase Microbiology Microbiology Results: Microbiology 02/02/22 15:55 Gram Stain - Final Ascites Fluid Assessment and Plan (1) Tumor lysis syndrome: Status: Acute (2) ARYA (acute kidney injury): Status: Acute (3) Hypercalcemia: Status: Acute Plan hospital d#4 76yo M with HTN + HLD, recently diagnosed with retroperitoneal mass, presenting with B-symptoms and 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 # tumor lysis syndrome - got 1 dose rasburicase on 01/31 then started renally-dosed allopurinol on 02/01; uric acid has come down from 26 to 5; continue to monitor BMP/PO4/LDH/uric acid/lactate daily + give isotonic IV fluid # type B lactic acidosis - due to underlying malignancy, not sepsis. will change IV fluid to isotonic bicarbonate # retroperitoneal mass suspicious for aggressive lymphoma - CT guided paracentesis and left upper quadrant biopsy done 02/02/22, Oncology following # ARYA - Nephrology involved, continue isotonic fluids IV, SCr improving, hold lisinopril # hyperK - improved after 2 doses Lokelma, hold lisionpril # hyperCa - suspected hypergalcemia of malignancy, iPTH undetectable, 25-OH D normal, 1-25-OH D pending, PTHrP pending, improving with IV fluid hydration, got IV zolendronate yesterday # HLD - statin # VTE ppx: UFH In my clinical judgment, the patient requires continued hospitalization for the following reasons: electrolyte monitoring, IV fluids for tumor lysis syndrome Quality Stroke Does the patient have a stroke diagnosis?: No VTE Prior VTE?: No VTE Risk Level:: Medical - moderate - high VTE Device Contraindication: Treatment Not Indicated VTE Drug Contraindication: N/A - Med Ordered
[2022-02-03] MEDS: Atorvastatin Calcium 40 MG TABLET PO (09:50)
[2022-02-03] MEDS: Sodium Bicarbonate 8.4% 150 MEQ in Dextrose 5 % 850 ML 125 MEQ IV ×2 (09:54→17:22)
[2022-02-03 09:56] LABS: Carbohydrate Antigen 19-9 18 U/mL (<34)
[2022-02-03 10:03] LABS: Cancel Lactic Acid Canceled
--- NOTE | 2022-02-03 10:23 | PM.HEMONCPN ---
Medical Summary - Medical Summary Date of Service: 02/03/22 Chief complaint: Follow-up for: 1. Tumor lysis syndrome. 2. Intra-abdominal malignancy. Medical Summary: DIAGNOSIS: 1. INTRA-ABDOMINAL MALIGNANCY. 2. ACUTE TUMOR LYSIS SYNDROME. Interval History Interval history: Jr Blanco is a pleasant 76 year old gentleman, he is doing a bit better. Had paracentesis with 2 L of fluid removed yesterday. Also had biopsy of the left upper quadrant mass. The tumor appeared rather vascular. Presenting history: He presented to the ED on 01/31, at the recommendation of PCP for evaluation of malaise, subjective fevers, sweats as well as unintentional weight loss 5 pounds, decreased oral intake ongoing for about 2 weeks. He was recently noted to have a large retroperitoneal mass suggestive of lymphoma requiring biopsy, In addition he has been following with urologist (Ute SOOD) for elevated PSA of 7.1 This has improved. He had a negative prostate bx in 2019. Has had MRI abd/pelvis that was negative for prostate cancer. He had a follow up U/S abd 12/23/21 at [facility] showing multiple circumscribed hypoechoic masses scattered throughout the liver. Follow up CT abd w/ IV contrast 01/01 showed; A 11.9 x 6.7 x 6.8 cm retroperitoneal mass abutting the pancreas and abutting/possibly invading the spleen as well as addl splenic lesions and left-soded para-aortic adenopathy. Given the appearance lymphoma is favored, but biopsy is recommended. He was actually scheduled to have biopsy this upcoming Wednesday at [facility]. In the ED, CT abd/pelvis repeated showing CT abd/pelvis showing extensive metastatic disease within the abdomen including 18cm x 15cm x 12cm, lobulated, poorly defined LUQ mass with loss of fat planes between the mass, spleen, and body/tail of the pancreas, and gastric fundus. Epicenter of the mass appears to be located in the retroperitoneum in the region of the splenic hilum/posterior aspect of the tail of the pancreas. Innumerable peritoneal and omental implants as well as omental caking throughout the abdomen implants. Small to moderate ascites. Patient also found to have ARYA with Creat 3.03 and BUN 71. K 6.2, calcium 13.3. Alk phos 139. AG 28. VBG normal. LDH 1960. He received 2L IVF in ED and [facility]. Review of Systems Review of Systems: General: +fever, +chills/sweats, +unintentional weight loss., +malaise Cardiovascular: No chest pain, palpitations, or leg edema Respiratory: No shortness of breath, wheezing, cough GI: No abdominal pain, nausea, vomiting, diarrhea, constipation, melena, hematochezia : No dysuria, hematuria, decreased urinary output, weak stream MSK: No pain Neuro: No headaches, weakness, paresthesias Skin: No rashes or lesions [facility] Medical History: Significant for: 1. ckd stage 3, hld, 2. Elevated psa 3. HTN (hypertension) 4. Hyperlipemia Surgical History: History of prostate biopsy Social History: Patient Tobacco Use Status: Never used Tobacco Use of substances other than those prescribed or required for medical reasons: No Advance Directives: Yes Advance Directives Information Provided: Yes Advance Directives on File: No service: Yes Current occupational status: retired Review of Systems - Constitutional Reports system reviewed and no additional complaints, except as documented - Eyes Reports system reviewed and no additional complaints, except as documented - ENT Reports system reviewed and no additional complaints, except as documented - Cardiovascular Reports system reviewed and no additional complaints, except as documented - Respiratory Reports no additional respiratory complaints - Gastrointestinal Reports system reviewed and no additional complaints, except as documented - Genitourinary Genitourinary: Reports no additional male genitourinary complaints - Musculoskeletal Reports system reviewed and no additional complaints, except as documented - Integumentary/Breasts Skin/Breast: Reports no additional skin complaints - Neurologic Reports system reviewed and no additional complaints, except as documented, Reports weakness - Psychiatric Reports system reviewed and no additional complaints, except as documented - Endocrine Reports no additional endocrine complaints - Hematologic/Lymphatic Reports system reviewed and no additional complaints, except as documented - Allergic/Immunologic Reports system reviewed and no additional complaints, except as documented [facility] Medical History: Medical History (Last Reviewed 02/01/22 @ 09:31 by Randa Lara MD) HTN (hypertension) Hyperlipemia Functional capacity: wheelchair bound Patient : No Surgical History: Surgical History (Last Reviewed 02/01/22 @ 09:32 by Randa Lara MD) History of prostate biopsy Social History: Social History (Last Reviewed 02/01/22 @ 09:31 by Randa Lara MD) Living Situation History: Household Members: Spouse Housing: House Do you presently have visiting nurse or other home services: No Tobacco History: Patient Tobacco Use Status: Never used Tobacco e-Cigarette/Vaping Use: Never Used Advance Directives: Advance Directives Date on File: 02/02/22 Occupation Assessmet: service: Yes Current occupational status: retired Oncology Screenings - ECOG Performance Status ECOG Performance Status: 2 Home Medications and Allergies Current Medications: Current Medications Acetaminophen (Acetaminophen Supp 325 Mg Supp.Rect) 650 mg [place] Q6H PRN PRN Reason: Pain, Mild (Pain Scale 1-3) Allopurinol (Allopurinol 100 Mg Tablet) 100 mg PO Q8H [facility] Last Admin: 02/03/22 09:52 Dose: 100 mg Atorvastatin Calcium (Atorvastatin Calcium 40 Mg Tablet) 40 mg PO DAILY [facility] Last Admin: 02/03/22 09:50 Dose: 40 mg Heparin Sodium (Porcine) (Heparin Sodium,Porcine 5,000 Unit/Ml Vial) 5,000 unit SUBCUT Q12H [facility] Last Admin: 02/01/22 03:58 Dose: 5,000 unit Sodium Bicarbonate 150 meq/ (Dextrose) 1,000 mls @ 125 mls/hr IV .Q8H [facility] Last Admin: 02/03/22 09:54 Dose: 125 mls/hr Ondansetron HCl (Ondansetron Hcl 4 Mg/2 Ml Vial) 4 mg IVPUSH Q8H PRN PRN Reason: Nausea and Vomiting Home Medications Medication Instructions Recorded Confirmed Type atorvastatin 40 mg tablet 1 tab PO DAILY 02/01/22 02/01/22 History Allergies Allergy/AdvReac Type Severity Reaction Status Date / Time No Known Allergies Allergy Verified 02/02/22 10:41 Exam Vital signs: Vital Signs Temp 97.3 F 02/03/22 07:06 Pulse 102 H 02/03/22 07:06 Resp 20 02/03/22 07:06 BP 136/68 02/03/22 07:06 Pulse Ox 95 02/03/22 03:00 O2 Del Method 02/03/22 07:06 Intake & Output 02/02/22 02/03/22 02/03/22 18:59 06:59 18:59 Intake Total 1999 / 4340 2340 / 4340 Output Total 0 / 500 500 / 500 Balance 1999 / 3840 1840 / 3840 Urine Output (Average ml/kg/hr) 0.00 0.50 0.50 Intake: Intake, Oral Amount 0 / 240 240 / 240 Intake, IV Amount 2000 / 4100 2100 / 4100 Zoledronic AC/Mannitol/0.9NACL 100 / 100 4 mg In 100 ml @ 400 mls/hr IV STAT STA Rx#:[id number] 0.9 % Sodium Chloride 1,000 ml 2000 / 4000 2000 / 4000 @ 200 mls/hr IVCONT .Q5H RYLEE Rx #:[id number] Output: Output, Urine Amount 0 / 500 500 / 500 Other: NPO Yes Urine Urinal Urine Color Yellow Last Bowel Movement 02/02/22 02/03/22 Weight 83.915 kg Weight in Grams 57335 Weight 83.915 kg BMI result Body Mass Index 25.0 - Constitutional Present: moderate distress - Routine HEENT Exam Head: Present: normal inspection Eye: Present: normal appearance ENT: Present: mucous membranes moist - Routine Neck Exam Present: full ROM - Routine Respiratory Exam Present: CTAB - Routine Cardiovascular Exam Cardiovascular: Present: S1, S2 - Routine Abdominal Exam Present: organomegaly, tenderness, nontender - Detailed Abdominal Exam Bowel sounds: hypoactive - Routine Extremities Exam Present: nontender - Routine Back/Spine/Pelvis Exam Back/Spine: Present: full ROM - Routine Skin Exam Present: intact - Routine Neurological Exam Present: alert, oriented X3 - Detailed Neurological Exam: Coma Scale Eye Opening: Spontaneous (4) - Routine Psychiatric Exam Present: normal affect Data - Labs CBC & Chem 7: 02/03/22 06:10 02/04/22 05:47 Labs: 01/31/22 11:29 Basic Metabolic Panel Stat Carbohydrate Antigen 19-9 Stat Carcinoembryonic Antigen Stat Complete Blood Count Auto Diff Stat Lactate Dehydrogenase Stat Lipase Stat Liver Panel Stat Phosphorus Stat Prostate Specific Antigen Stat Uric Acid Stat 01/31/22 12:26 CT abdomen pelvis wo IV con Stat 01/31/22 12:27 ECG 12 lead EKG Stat EKG Documentation DIRECTED Sodium Zirconium Cyclosilicate [Lokelma] 10 gm PO ONCE ONE 01/31/22 12:30 0.9 % Sodium Chloride [Ns] 1,000 ml IV 999 mls/hr 0.9 % Sodium Chloride [Ns] 1,000 ml IV 999 mls/hr 01/31/22 14:53 VBG [Venous Blood Gas] Stat 01/31/22 14:56 Venous Blood Gases - POC Routine 01/31/22 15:09 Add Laboratory Test Stat 01/31/22 15:26 Acetaminophen Supp [Tylenol Supp] 650 mg FL Q6H PRN 01/31/22 15:29 Regular Diet 01/31/22 15:30 0.9 % Sodium Chloride [Ns] 1,000 ml IVCONT 200 mls/hr 01/31/22 15:42 Albuterol Sulfate 10 mg INHALE ONCE 10 mg INHALE ONCE Dextrose 50 % [D50] 25 gm IVPUSH ONCE ONE Insulin Regular, Human [Humulin R] 5 unit IVPUSH ONCE ONE 01/31/22 15:52 Add Laboratory Test Stat 01/31/22 16:19 BMP [Basic Metabolic Panel] Stat Vitamin D 25-OH Total Routine 01/31/22 18:00 Rasburicase [Elitek] 6 mg 0.9 % Sodium Chloride [Ns] 46 ml IV ONCE 01/31/22 20:20 COVID-19 ID NOW ([place]) Stat 01/31/22 22:30 ECG 12 lead EKG Stat EKG Documentation DIRECTED Lactated Ringers [Lr] 1,000 ml IV 999 mls/hr 02/01/22 00:45 BMP [Basic Metabolic Panel] Q6H Lactate Dehydrogenase Routine Phosphorus Q6H 02/01/22 06:37 BMP [Basic Metabolic Panel] Q6H Phosphorus Q6H Uric Acid for Rasburicase Q6H 02/01/22 07:26 Add Laboratory Test Routine 02/01/22 12:03 BMP [Basic Metabolic Panel] Q6H Phosphorus Q6H Prothrombin Time INR Routine Uric Acid for Rasburicase Routine 02/01/22 13:05 Sodium Zirconium Cyclosilicate [Lokelma] 10 gm PO ONCE ONE 02/01/22 13:30 Zoledronic AC/Mannitol/0.9NACL [Zometa] 4 mg in 100 ml IV ONCE 02/02/22 CT biopsy abdomen percutaneous Routine CT drain paracentesis Routine 02/02/22 00:01 NPO Diet 02/02/22 05:45 Basic Metabolic Panel Routine Complete Blood Count no Diff Routine Lactate Dehydrogenase Routine Phosphorus Routine Uric Acid for Rasburicase Routine 02/02/22 08:20 Sodium Zirconium Cyclosilicate [Lokelma] 10 gm PO ONCE ONE 02/02/22 14:09 Midazolam HCl/PF [Versed] 2 mg .ROUTE .STK-MED ONE Naloxone HCl [Narcan] 0.4 mg .ROUTE .STK-MED ONE fentaNYL citrate/PF [Sublimaze] 100 mcg .ROUTE .STK-MED ONE flumazeniL [Romazicon] 0.05 mg .ROUTE .STK-MED ONE 02/02/22 14:10 Lidocaine HCl 1 % MPF [Xylocaine 1 % MPF] 2 ml .ROUTE .STK-MED ONE 02/02/22 16:16 Regular Diet 02/02/22 17:02 Calcium Stat LDH [Lactate Dehydrogenase] Stat Lytes [Electrolytes] Stat Phosphorus Stat 02/02/22 18:03 Zoledronic AC/Mannitol/0.9NACL [Zometa] 4 mg in 100 ml IV STAT 02/03/22 06:10 Basic Metabolic Panel Routine Complete Blood Count no Diff Routine Lactate Dehydrogenase Routine Lactic Acid Routine Phosphorus Routine Uric Acid for Rasburicase Routine 02/03/22 08:32 ~Lactic Acid-LAB USE ONLY Stat 02/03/22 09:55 Cancel Lactic Acid Stat Laboratory Last Values WBC 10.9 X10*3/uL (4.8-10.8) H 02/03/22 06:10 RBC 3.73 X10*6/uL (4.60-5.80) L 02/03/22 06:10 Hgb 11.0 g/dl (14.0-18.0) L 02/03/22 06:10 Hct 34.1 % (42.0-52.0) L 02/03/22 06:10 MCV 91.4 fL (80.0-98.0) 02/03/22 06:10 MCH 29.5 pg (27.0-33.0) 02/03/22 06:10 MCHC 32.3 g/dl (31.0-36.0) 02/03/22 06:10 RDW 13.2 % (11.0-16.0) 02/03/22 06:10 Plt Count 288 X10*3/uL (160-400) 02/03/22 06:10 MPV 9.7 fL (9.4-12.4) 02/03/22 06:10 Immature Gran % (Auto) 0.4 % (0.0-0.4) 01/31/22 11: Neut % (Auto) 82.9 % (45-73) H 01/31/22 11:29 Lymph % (Auto) 6.2 % (20-40) L 01/31/22 11:29 [place] % (Auto) 8.9 % (2-11) 01/31/22 11: Eos % (Auto) 1.1 % (0-4) 01/31/22 11: Baso % (Auto) 0.5 % (0-2) 01/31/22 11: Lymph # (Auto) 0.7 X10*3/uL (1.2-4.9) L 01/31/22 11: [place] # (Auto) 1.0 X10*3/uL (0.1-1.2) 01/31/22 11: Eos # (Auto) 0.1 X10*3/uL (0.0-0.4) 01/31/22 11: Baso # (Auto) 0.1 X10*3/uL (0.0-0.2) 01/31/22 11:29 Abs Immat Gran (auto) 0.05 X10*3/uL (0.00-0.03) H 01/31/22 11:29 Absolute Neuts (auto) 9.6 x10*3/uL (2.0-8.3) H 01/31/22 11:29 Absolute Nucleated RBC 0.000 X10*3/uL (0.0-0.012) 02/03/22 06:10 Nucleated RBC % (auto) 0.0 /100WBC (0.0-0.2) 02/03/22 06:10 PT 12.3 SEC (10.0-13.1) 02/01/22 12:03 INR 1.1 (0.9-1.1) 02/01/22 12:03 VBG pH 7.36 (7.32-7.43) 01/31/22 14:56 VBG pCO2 27 mmHg 01/31/22 14:56 VBG pO2 67 mmHg 01/31/22 14:56 VBG HCO3 15 mmol/L (22-26) L 01/31/22 14:56 VBG O2 Saturation 92.0 % 01/31/22 14:56 VBG Base Excess -7.9 mmol/L 01/31/22 14:56 Sodium 145 mmol/L (135-145) 02/03/22 06:10 Potassium 4.8 mmol/L (3.3-5.1) 02/03/22 06:10 Chloride 114 mmol/L (96-108) H 02/03/22 06:10 Carbon Dioxide 16 mmol/L (22-29) L 02/03/22 06:10 Anion Gap 20 (12-20) 02/03/22 06:10 BUN 54 mg/dL (9-16) H 02/03/22 06:10 Creatinine 1.98 mg/dL (0.5-1.4) H 02/03/22 06:10 Estim Creat Clear Calc 35.9 02/03/22 06:10 Estimated GFR 33 02/03/22 06:10 Random Glucose 81 mg/dL (60-115) 02/03/22 06:10 Lactic Acid 7.4 mmol/L (0.5-2.0) H* 02/03/22 06:10 Lactic Acid F/U @ 2Hr 6.8 mmol/L (0.5-2.0) H* 02/03/22 08:32 Uric Acid 25.5 mg/dL (3.4-7.0) H 01/31/22 11:29 Calcium 11.5 mg/dL (8.4-10.2) H 02/03/22 06:10 Phosphorus 3.6 mg/dL (2.7-4.5) 02/03/22 06:10 Total Bilirubin 0.6 mg/dL (0.0-1.0) 01/31/22 11:29 Direct Bilirubin 0.3 mg/dL (0.0-0.5) 01/31/22 11:29 AST 44 U/L (5-37) H D 01/31/22 11:29 ALT 30 U/L (0-40) 01/31/22 11:29 Alkaline Phosphatase 139 U/L (39-117) H D 01/31/22 11:29 Lactate Dehydrogenase 1612 U/L (118-273) H 02/03/22 06:10 Total Protein 6.7 g/dL (6.5-8.0) 01/31/22 11: Albumin 4.0 g/dL (3.5-5.0) 01/31/22 11: Lipase 91 U/L (8-78) H 01/31/22 11:29 Carcinoembryonic Ag < 0.50 ng/mL 01/31/22 11: CA 19-9 Antigen 18 U/mL (<34) 01/31/22 11: Prostate Specific Ag 11.27 ng/mL (<0.05-4.0) H 01/31/22 11: 25-OH Vitamin D Total 19.2 ng/mL (>30) 01/31/22 16:19 PTH Intact <6 pg/mL (16-77) L 01/31/22 16: Calcium (PTH Intact) 12.0 mg/dL (8.6-10.3) H 01/31/22 16:19 Urine Color Yellow 02/01/22 01:01 Urine Appearance Clear 02/01/22 01:01 Urine pH 5.0 (5.0-9.0) 02/01/22 01:01 Ur Specific [place] 1.015 (1.005-1.025) 02/01/22 01:01 Urine Protein Negative mg/dL (Neg-Trace) 02/01/22 01:01 Urine Glucose (UA) Negative mg/dL (Negative) 02/01/22 01:01 Urine Ketones Negative mg/dL (Negative) 02/01/22 01:01 Urine Blood Negative (Negative) 02/01/22 01:01 Urine Nitrite Negative (Negative) 02/01/22 01:01 Ur Leukocyte Esterase Trace (Negative) H 02/01/22 01:01 Urine RBC 0-2 /HPF (0-2) 02/01/22 01:01 Urine WBC 6-10 /HPF (0-5) H 02/01/22 01:01 Ur Squamous Epith Cells 0-2 /HPF (0-2) 02/01/22 01:01 Urine Bacteria None Seen (None Seen) 02/01/22 01:01 Hyaline Casts 6-10 /LPF (0-2) 02/01/22 01:01 Uric Pt Rasburicase 4.8 mg/dL 02/03/22 06:10 COVID-19 ([facility]YLER) Negative (Negative) 01/31/22 20:20 COVID-19 Clin Com See Note 01/31/22 20:20 - Imaging Radiologist's impression: ITS Impressions Abdomen/Pelvis CT 01/31/22 12:48 IMPRESSION: Limited by lack of oral and intravenous contrast as well as by motion. Extensive malignant disease within the abdomen as detailed above. Findings include a large 18 x 15 x 12 cm, lobulated, poorly defined left upper quadrant mass with loss of fat planes between the mass, spleen, body and tail the pancreas, and gastric fundus. The epicenter of the mass appears located in the retroperitoneum in the region of the splenic hilum/posterior aspect of the tail the pancreas. Innumerable peritoneal and omental implants as well as omental caking throughout the abdomen. Adenopathy. Small to moderate amount of ascites. Right inguinal hernia containing a small amount of fluid and possible soft tissue density/mass. Abdomen Biopsy CT 02/02/22 16:48 IMPRESSION: CT guided paracentesis and left upper quadrant biopsy. Abscess Drainage CT 02/02/22 16:48 IMPRESSION: CT guided paracentesis and left upper quadrant biopsy. Assessment and Plan Patient Active problem list reviewed?: Yes (1) Retroperitoneal mass Status: Acute Assessment and plan: This is a pleasant 76-year-old gentleman who presented for evaluation of malaise, subjective fevers, sweats as well as unintentional weight loss 5 pounds, decreased oral intake ongoing for about 2 weeks. He was recently noted to have a large retroperitoneal mass suggestive of lymphoma requiring biopsy, In addition he has been following with urologist (Ute SOOD) for elevated PSA of 7.1 This has improved. He had a negative prostate bx in 2019. Has had MRI abd/pelvis that was negative for prostate cancer. He had a follow up U/S abd 12/23/21 at [facility] showing multiple circumscribed hypoechoic masses scattered throughout the liver. Follow up CT abd w/ IV contrast 01/01 showed; A 11.9 x 6.7 x 6.8 cm retroperitoneal mass abutting the pancreas and abutting/possibly invading the spleen as well as addl splenic lesions and left-soded para-aortic adenopathy. Given the appearance lymphoma is favored, but biopsy is recommended. He was actually scheduled to have biopsy this upcoming Wednesday at [facility]. In the ED, CT abd/pelvis repeated showing CT abd/pelvis showing extensive metastatic disease within the abdomen including 18cm x 15cm x 12cm, lobulated, poorly defined LUQ mass with loss of fat planes between the mass, spleen, and body/tail of the pancreas, and gastric fundus. Epicenter of the mass appears to be located in the retroperitoneum in the region of the splenic hilum/posterior aspect of the tail of the pancreas. Innumerable peritoneal and omental implants as well as omental caking throughout the abdomen implants. Small to moderate ascites. Patient also found to have ARYA with Creat 3.03 and BUN 71. K 6.2, calcium 13.3. Alk phos 139. AG 28. VBG normal. LDH 1960. 1. Concern is that patient most likely has a lymphoma. It could be an aggressive lymphoma like Burkitt's, with significant organ involvement and elevated LDH. Alternative would be T-cell lymphoma, given the hypercalcemia. DIFFERENTIAL DIAGNOSIS: 2. A solid tumor. The patient was noted to be in spontaneous tumor lysis syndrome. Uric acid was up to 25 and phosphate upto 6.8. Calcium up to 12.2. He has been treated with aggressive IV hydration. He received a dose of rasburicase, 13 mg. Then started on allopurinol renally adjusted: 100 mg q.8 hours. With that his uric acid had come down serially to 14, and now down 4.8. Phosphate is down to 4.3. Calcium down to 11.5. He had the biopsy of the mass by IR, yesterday. 2 L of fluid were also removed. He feels somewhat better. PLAN: Would try to expedite the results, so anti tumor treatment can be started urgently. Plan discussed with patient and Discussed with hospital staff. Thank you for the consult, I will follow along with you, Addendum: Patient's pathology revealed a high-grade lymphoma: Differential diagnosis: 1. Diffuse large B-cell lymphoma. 2. Lymphoblastic lymphoma. Concern was that he would require intensive chemotherapy, with further risk of developing tumor lysis syndrome. He should be treated at large referral center. He was referred to [facility] and transferred there. I wish him the best of luck. - Time Spent With Patient Time Spent with Patient (in minutes): 30
--- NOTE | 2022-02-03 10:52 | P.PNNP_ITS ---
Subjective Subjective Date of Service: 02/03/22 Interval history: Seen and examined, events noted Physical Exam Vital Signs: Vital Signs: Last Vital Signs Temp 97.3 F 02/03/22 07:06 Pulse 102 H 02/03/22 07:06 Resp 20 02/03/22 07:06 BP 136/68 02/03/22 07:06 Pulse Ox 95 02/03/22 03:00 O2 Del Method 02/03/22 07:06 BMI result Body Mass Index 25.0 Const: Other: Looks ill chronically Pale, sallow HEENT: Other: NOrmal exam, PERRLA and EOM normal Neck: Other: NO adenopathy Chest: Other: Clear to auscultation Cardio: Other: RRR, hyperdynamic, no murmur, no JVD, no rub GI: Other: Abdominal distension, soft and nontender to palpation with normal bowel sounds, fluid wave is present Skin: Other: Pallor Neuro: Other: Oriented times 3 and appropriate in home baby sitter are intact No focal weakness Extrem: Other: No leg edema noted Objective Data Labs CBC & Chem 7: 02/03/22 06:10 02/03/22 06:10 Labs: Laboratory Results - last 24 hr 01/31/22 01/31/22 02/02/22 11:29 16:19 17:02 WBC RBC Hgb Hct MCV MCH MCHC RDW Plt Count MPV Absolute Nucleated RBC Nucleated RBC % (auto) Sodium 147 H Potassium 5.0 Chloride 113 H Carbon Dioxide 15 L Anion Gap 24 H BUN Creatinine Estim Creat Clear Calc Estimated GFR Random Glucose Lactic Acid Lactic Acid F/U @ 2Hr Calcium 11.3 H Phosphorus 4.1 Lactate Dehydrogenase 1725 H CA 19-9 Antigen 18 PTH Intact <6 L Calcium (PTH Intact) 12.0 H Uric Pt Rasburicase 02/03/22 02/03/22 02/03/22 06:10 06:10 06:10 WBC 10.9 H RBC 3.73 L Hgb 11.0 L Hct 34.1 L MCV 91.4 MCH 29.5 MCHC 32.3 RDW 13.2 Plt Count 288 MPV 9.7 Absolute Nucleated RBC 0.000 Nucleated RBC % (auto) 0.0 Sodium 145 Potassium 4.8 Chloride 114 H Carbon Dioxide 16 L Anion Gap 20 BUN 54 H Creatinine 1.98 H Estim Creat Clear Calc 35.9 Estimated GFR 33 Random Glucose 81 Lactic Acid Lactic Acid F/U @ 2Hr Calcium 11.5 H Phosphorus 3.6 Lactate Dehydrogenase 1612 H CA 19-9 Antigen PTH Intact Calcium (PTH Intact) Uric Pt Rasburicase 4.8 02/03/22 02/03/22 06:10 08:32 WBC RBC Hgb Hct MCV MCH MCHC RDW Plt Count MPV Absolute Nucleated RBC Nucleated RBC % (auto) Sodium Potassium Chloride Carbon Dioxide Anion Gap BUN Creatinine Estim Creat Clear Calc Estimated GFR Random Glucose Lactic Acid 7.4 H* Lactic Acid F/U @ 2Hr 6.8 H* Calcium Phosphorus Lactate Dehydrogenase CA 19-9 Antigen PTH Intact Calcium (PTH Intact) Uric Pt Rasburicase Microbiology Microbiology Results: Microbiology 02/02/22 15:55 Ascites Fluid Gram Stain - Final Procedures Date of Service Date of Service: 02/03/22 Assessment & Plan Assessment and plan (1) ARYA (acute kidney injury): Status: Acute (2) Acute hyperkalemia: Status: Acute (3) Metabolic acidosis: Status: Acute (4) Hypercalcemia: Status: Acute Plan 1. ARYA:multifact: c/w TLS, HyperCa and vol depletion along with ROSIE-I; Scr cont slow decr with IVF and decr CA and decr UA 2. HyperCa: d/t Ca and TLS and dehydration: decr w IVF and apparently has not recieved Zometa yet--today to get infusion 3. Hyperuricemia: s/p Uricase x 1 and excellent repsonse--now maitaind on allopurinol 4. TLS spontaneous d/t large tumor burden 5. Ques Obs uropathy despite absence of hydro can occuer in tumoers like this that prevent the ureter and renal pelvis from dilating d/t encasement--does not appear to be the case here 6. HyperK: d/t TLS and prioer ROSIE and ARYA--resolved for now 7. Type B-Lactic acidosis from Cancer REC: cont to track UAL and K; can switch to IV NaHCO3 if HCO3 decr further; cont allopurinaol and willneed to monitor losley after chemo for recurrent TLS risk is high Will follow clsoley with team Time Spent With Patient Time: Total time spent is greater than 50% in coordination of care (as documented) at patient's floor/unit and/or counseling patient: Progress Note: Quality Stroke Does the patient have a stroke diagnosis?: No
[2022-02-03 11:08] VITALS: BP 128/68; PULSE 95; RESP 20; TEMP 37.1; O2SAT 94
[2022-02-03] MEDS: Heparin Sodium,Porcine 5,000 UNIT/ML VIAL 5000 UNIT SUBCUT (15:19)
[2022-02-03 15:29] VITALS: BP 112/56; PULSE 65; RESP 20; TEMP 36.9; O2SAT 94
[2022-02-03 20:00] VITALS: BP 137/73; PULSE 107; RESP 20; TEMP 36.3; O2SAT 95
[2022-02-03 23:47] VITALS: BP 134/68; PULSE 110; RESP 20; TEMP 36.4; O2SAT 94
[2022-02-04 02:47] VITALS: BP 128/58; PULSE 107; RESP 20; TEMP 36.6; O2SAT 93
[2022-02-04] MEDS: Heparin Sodium,Porcine 5,000 UNIT/ML VIAL 5000 UNIT SUBCUT ×2 (04:33→16:04)
[2022-02-04] MEDS: allopurinoL 100 MG TABLET PO ×2 (04:33→12:31)
[2022-02-04 06:17] LABS: Anion Gap 23 (12-20); Blood Urea Nitrogen 46 mg/dL (9-16); Calcium 11.3 mg/dL (8.4-10.2); Carbon Dioxide 17 mmol/L (22-29); Chloride 110 mmol/L (96-108); Creatinine Clr Calc Pharmacy 38.6; Estimated Glomerular Filt Rate 36; Glucose Random 93 mg/dL (60-115); Lactate Dehydrogenase 1605 U/L (118-273); Magnesium 1.6 mg/dL (1.6-2.6); Phosphorus 3.1 mg/dL (2.7-4.5); Potassium 4.8 mmol/L (3.3-5.1); Sodium 145 mmol/L (135-145)
[2022-02-04 07:33] VITALS: BP 139/60; PULSE 106; RESP 20; TEMP 36.6; O2SAT 92
[2022-02-04 07:53] LABS: Reflex Lactate? Lactic Acid Added
[2022-02-04] MEDS: Thiamine HCL 100 MG TABLET PO (08:26)
[2022-02-04] MEDS: Sodium Bicarbonate 8.4% 150 MEQ in Dextrose 5 % 850 ML 125 MEQ IV (08:26)
[2022-02-04] MEDS: Atorvastatin Calcium 40 MG TABLET PO (08:26)
[2022-02-04] MEDS: 0.9 % Sodium Chloride 1,000 ML 125 ML IVCONT ×2 (11:13→17:15)
[2022-02-04 11:37] VITALS: BP 121/65; PULSE 113; RESP 20; TEMP 36.9; O2SAT 94
--- NOTE | 2022-02-04 11:43 | HO.PM.IMPN ---
Subjective Subjective Date of Service: 02/04/22 Interval History: No fever C/o anorexia + night sweats C/o abdominal discomfort from ascites Preliminary pathology: high-grade lymphoma Review of Systems Review of Systems: Yes all other systems are reviewed and are negative Physical Exam Vital Signs: Vital Signs: Last Vital Signs Temp 98.4 F 02/04/22 11:37 Pulse 113 H 02/04/22 11:37 Resp 20 02/04/22 11:37 BP 121/65 02/04/22 11:37 Pulse Ox 94 02/04/22 11:37 O2 Del Method 02/04/22 11:37 BMI result Body Mass Index 25.0 Gen: in no acute distress HEENT: sclera anicteric, moist mucus membranes Neck: supple Lungs: clear to auscultation bilaterally Heart: tachycardic, no murmurs Abd: distended, non-tender, fluid wave present Ext: no edema Skin: warm/well-perfused Neuro: alert and oriented x3, no focal findings Psych: appropriate affect ? Objective Data Active Medications Acetaminophen (Acetaminophen Supp 325 Mg Supp.Rect) 650 mg WA Q6H PRN PRN Reason: Pain, Mild (Pain Scale 1-3) Allopurinol (Allopurinol 100 Mg Tablet) 100 mg PO Q8H [facility] Last Admin: 02/04/22 04:33 Dose: 100 mg Documented By: GUERITA Atorvastatin Calcium (Atorvastatin Calcium 40 Mg Tablet) 40 mg PO DAILY [facility] Last Admin: 02/04/22 08:26 Dose: 40 mg Documented By: TEMO Heparin Sodium (Porcine) (Heparin Sodium,Porcine 5,000 Unit/Ml Vial) 5,000 unit SUBCUT Q12H [facility] Last Admin: 02/04/22 04:33 Dose: 5,000 unit Documented By: GUERITA Sodium Chloride (Ns) 1,000 mls @ 125 mls/hr IVCONT .Q8H [facility] Last Admin: 02/04/22 11:13 Dose: 125 mls/hr Documented By: TEMO Ondansetron HCl (Ondansetron Hcl 4 Mg/2 Ml Vial) 4 mg IVPUSH Q8H PRN PRN Reason: Nausea and Vomiting Thiamine HCl (Thiamine Hcl 100 Mg Tablet) 100 mg PO DAILY [facility] Last Admin: 02/04/22 08:26 Dose: 100 mg Documented By: TEMO Labs CBC & Chem 7: 02/03/22 06:10 02/04/22 05:47 Labs: Laboratory Results - last 24 hr 02/04/22 02/04/22 02/04/22 05:47 05:47 05:47 Anion Gap 23 H Estim Creat Clear Calc 38.6 Estimated GFR 36 Random Glucose 93 Lactic Acid 9.0 H* Calcium 11.3 H Phosphorus 3.1 Magnesium 1.6 Lactate Dehydrogenase 1605 H Uric Pt Rasburicase 4.0 Microbiology Microbiology Results: Microbiology 02/02/22 15:55 Gram Stain - Final Ascites Fluid Routine Culture - Preliminary No growth to date. Anaerobic Culture - Preliminary No growth to date. 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 per Oncology and Nephrology will need inpatient induction as this will certainly provoked further tumor lysis # tumor lysis syndrome - got 1 dose rasburicase on 01/31 then started renally-dosed allopurinol on 02/01; uric acid has come down from 26 to 4; continue to monitor BMP/PO4/LDH/uric acid/lactate daily + give isotonic NS # type B lactic acidosis - due to underlying malignancy, not sepsis # ARYA - Nephrology involved, continue isotonic fluids IV, SCr improving, hold lisinopril # hyperK - improved after 2 doses Lokelma, hold lisinopril # hyperCa - suspected hypergalcemia of malignancy, iPTH undetectable, 25-OH D normal, 1-25-OH D pending, PTHrP pending, improving with IV fluid hydration, got IV zolendronate on 02/02 # HLD - statin # VTE ppx: UFH In my clinical judgment, the patient requires continued hospitalization for the following reasons: electrolyte monitoring, IV fluids for tumor lysis syndrome Quality Stroke Does the patient have a stroke diagnosis?: No VTE Prior VTE?: No VTE Risk Level:: Medical - moderate - high VTE Device Contraindication: Treatment Not Indicated VTE Drug Contraindication: N/A - Med Ordered
--- NOTE | 2022-02-04 13:23 | P.DS_ITS ---
DS: Providers Provider Date of Service: 02/04/22 Date of admission: 01/31/22 15:27 Date of discharge: 02/04/22 Primary care physician: Ry Contreras DO Admitting clinician: Lindsay Minor Attending physician on admission: Eva Tellez Consults: 01/31/22 16:02 Consult to Hematology / Oncology Routine Consulting Provider: Cristopher Acosta Reason for consultation: retroperitoneal mass, ?tumor lysis 01/31/22 16:30 Consult to Nephrology Routine Consulting Provider: Randa Lara Reason for consultation: ARYA, hyperkalemia Attending physician on discharge: Eva Tellez Discharging clinician: Eva Tellez DS: Transfer Hospital Acceptance Reason for Transfer: inpatient chemotherapy Name of Facility: [facility] Accepting Provider: Jason Self MD DS: Diagnosis Discharge Diagnosis (1) Tumor lysis syndrome: Status: Acute (2) ARYA (acute kidney injury): Status: Acute (3) Hypercalcemia: Status: Acute (4) Acute hyperkalemia: Status: Acute (5) Lactic acidosis: Status: Acute (6) Ascites: Status: Acute (7) High grade malignant lymphoma: Status: Acute DS: Summary Hospital Course Hospital Course: From admission history and physical by hospitalist CELESTE Minor, 01/31/22: 76 year old patient with history significant for htn with ckd stage 3, hld, and elevated psa as well as large retroperitoneal mass suggestive of lymphoma requiring biopsy presented to the ED today at the recommendation of PCP for evaluation of malaise, subjective fevers, sweats, unintentional weight loss 5 pounds, decreased oral intake ongoing for about 2 weeks. Pt has been following with urologist (Ute SOOD) for elevated PSA of 7.1 which pt reports has improved. Has negative prostate bx in 2019. Has had MRI abd/pelvis that was negative for prostate cancer. Then had follow up U/S abd 12/23/21 at [facility] showing multiple circumscribed hypoechoic masses scattered throughout the liver. Follow up CT abd w/ IV contrast 01/01 showed 11.9 x 6.7 x 6.8 cm retroperitoneal mass abutting the pancreas and abutting/possibly invading the spleen as well as addl splenic lesions and left-soded para-aortic adenopathy. Given the appearance lymphoma is favored, but biopsy is recommended . He was scheduled to have biopsy this upcoming Wednesday at [facility]. In the ED, CT abd/pelvis repeated showing CT abd/pelvis showing extensive metastatic disease within the abdomen including 18cm x 15cm x 12cm, lobulated, poorly defined LUQ mass with loss of fat planes between the mass, spleen, and body/tail of the pancreas, and gastric fundus. Epicenter of the mass appears to be located in the retroperitoneum in razia region of the splenic hylum/posterior aspect of the tail of the pancreas. Innumerable peritoneal and omental ikmplants as well as omental caking throughout the abdomen implants. Small to moderate ascites. Patient also found to have ARYA with Creat 3.03 and BUN 71. K 6.2, calcium 13.3. Alk phos 139. AG 28. VBG normal. Received 2L IVF in ED and kelga. LDH 1960. This 76yo M with HTN + HLD, recently diagnosed with retroperitoneal mass (grew from 11->18 cm over 3 mo), was scheduled for biopsy at [facility] on 02/02/22, but presented here on 01/31/22 with B-symptoms and was found to have spontaneous tumor lysis syndrome. He underwent aggressive IV hydration with bicarbonate and isotonic saline and got 1 dose of rasburicase on 01/31/22; he was then started on renally-dosed allopurinol on 02/01/22. Uric acid has come down from 25.5 to 4, and SCr has improved from 3.03 to 1.84. He required several doses of SZC to reduce his potassium; it is currently 4.8. He got 1 dose of IV zolendronate on 02/02/22, and calcium improved from 13.[address]-guided paracentesis and left upper quadrant biopsy done on 02/02/22 showed a high-grade lymphoma on initial pathology. He needs urgent induction chemotherapy in the inpatient setting as further tumor lysis will be provoked and he has a very high tumor burden. I contacted [facility] and the patient was accepted for inpatient treatment by Jason Self. Time Spent with Patient Time attestation: Total time spent providing and/or coordinating discharge services: 75 Discharge coordination time: Greater than 30 minutes Quality: Safe Use of Opioids Does Pt have an Active Cancer Diagnosis on the Problem List?: Yes Opioid Measure Date for CMS Report: 01/05/22 Opioid Measure Time for [facility] Report: 13:30 Quality: Stroke Does the patient have a stroke diagnosis?: No Physical Exam Vital Signs: Vital Signs: Last Vital Signs Temp 98.4 F 02/04/22 11:37 Pulse 113 H 02/04/22 11:37 Resp 20 02/04/22 11:37 BP 121/65 02/04/22 11:37 Pulse Ox 94 02/04/22 11:37 O2 Del Method 02/04/22 11:37 BMI result Body Mass Index 25.0 Gen: in no acute distress HEENT: sclera anicteric, moist mucus membranes Neck: supple Lungs: clear to auscultation bilaterally Heart: tachycardic, no murmurs Abd: distended, non-tender, fluid wave present Ext: no edema Skin: warm/well-perfused Neuro: alert and oriented x3, no focal findings Psych: appropriate affect ? DS: Data Data Completed and Pending Completed studies during hospitalization [Text1]: ITS Impressions Abdomen/Pelvis CT 01/31/22 12:48 IMPRESSION: Limited by lack of oral and intravenous contrast as well as by motion. Extensive malignant disease within the abdomen as detailed above. Findings include a large 18 x 15 x 12 cm, lobulated, poorly defined left upper quadrant mass with loss of fat planes between the mass, spleen, body and tail the pancreas, and gastric fundus. The epicenter of the mass appears located in the retroperitoneum in the region of the splenic hilum/posterior aspect of the tail the pancreas. Innumerable peritoneal and omental implants as well as omental caking throughout the abdomen. Adenopathy. Small to moderate amount of ascites. Right inguinal hernia containing a small amount of fluid and possible soft tissue density/mass. Abdomen Biopsy CT 02/02/22 16:48 IMPRESSION: CT guided paracentesis and left upper quadrant biopsy. Abscess Drainage CT 02/02/22 16:48 IMPRESSION: CT guided paracentesis and left upper quadrant biopsy. Laboratory Tests 01/31/22 01/31/22 01/31/22 11:29 11:29 11:29 WBC 11.6 H RBC 4.57 L Hgb 13.6 L Hct 41.1 L MCV 89.9 MCH 29.8 MCHC 33.1 RDW 12.6 Plt Count 386 D MPV 9.7 Immature Gran % (Auto) 0.4 Neut % (Auto) 82.9 H Lymph % (Auto) 6.2 L [place] % (Auto) 8.9 Eos % (Auto) 1.1 Baso % (Auto) 0.5 Lymph # (Auto) 0.7 L [place] # (Auto) 1.0 Eos # (Auto) 0.1 Baso # (Auto) 0.1 Abs Immat Gran (auto) 0.05 H Absolute Neuts (auto) 9.6 H Absolute Nucleated RBC 0.000 Nucleated RBC % (auto) 0.0 PT INR VBG pH VBG pCO2 VBG pO2 VBG HCO3 VBG O2 Saturation VBG Base Excess Sodium 140 Potassium 6.2 H* D Chloride 102 Carbon Dioxide 16 L Anion Gap 28 H BUN 71 H D Creatinine 3.03 H Estim Creat Clear Calc 23.4 Estimated GFR 20 Random Glucose 117 H Lactic Acid Lactic Acid F/U @ 2Hr Uric Acid 25.5 H Calcium 13.3 H* D Phosphorus 6.8 H Magnesium Total Bilirubin 0.6 Direct Bilirubin 0.3 AST 44 H D ALT 30 Alkaline Phosphatase 139 H D Lactate Dehydrogenase 1960 H Total Protein 6.7 Albumin 4.0 Lipase 91 H Carcinoembryonic Ag < 0.50 CA 19-9 Antigen 18 Prostate Specific Ag 11.27 H 25-OH Vitamin D Total PTH Intact Calcium (PTH Intact) Urine Color Urine Appearance Urine pH Ur Specific [place] Urine Protein Urine Glucose (UA) Urine Ketones Urine Blood Urine Nitrite Ur Leukocyte Esterase Urine RBC Urine WBC Ur Squamous Epith Cells Urine Bacteria Hyaline Casts Uric Pt Rasburicase COVID-19 (SKYLER) COVID-19 Clin Com 01/31/22 01/31/22 01/31/22 14:56 16:19 16:19 WBC RBC Hgb Hct MCV MCH MCHC RDW Plt Count MPV Immature Gran % (Auto) Neut % (Auto) Lymph % (Auto) [place] % (Auto) Eos % (Auto) Baso % (Auto) Lymph # (Auto) [place] # (Auto) Eos # (Auto) Baso # (Auto) Abs Immat Gran (auto) Absolute Neuts (auto) Absolute Nucleated RBC Nucleated RBC % (auto) PT INR VBG pH 7.36 VBG pCO2 27 VBG pO2 67 VBG HCO3 15 L VBG O2 Saturation 92.0 VBG Base Excess -7.9 Sodium 143 Potassium 5.5 H Chloride 107 Carbon Dioxide 16 L Anion Gap 26 H BUN 70 H Creatinine 2.77 H Estim Creat Clear Calc 25.6 Estimated GFR 23 Random Glucose 99 Lactic Acid Lactic Acid F/U @ 2Hr Uric Acid Calcium 12.2 H D Phosphorus Magnesium Total Bilirubin Direct Bilirubin AST ALT Alkaline Phosphatase Lactate Dehydrogenase Total Protein Albumin Lipase Carcinoembryonic Ag CA 19-9 Antigen Prostate Specific Ag 25-OH Vitamin D Total 19.2 PTH Intact Calcium (PTH Intact) Urine Color Urine Appearance Urine pH Ur Specific [place] Urine Protein Urine Glucose (UA) Urine Ketones Urine Blood Urine Nitrite Ur Leukocyte Esterase Urine RBC Urine WBC Ur Squamous Epith Cells Urine Bacteria Hyaline Casts Uric Pt Rasburicase COVID-19 (SKYLER) COVID-19 Clin Com 01/31/22 01/31/22 02/01/22 16:19 20:20 00:45 WBC RBC Hgb Hct MCV MCH MCHC RDW Plt Count MPV Immature Gran % (Auto) Neut % (Auto) Lymph % (Auto) [place] % (Auto) Eos % (Auto) Baso % (Auto) Lymph # (Auto) [place] # (Auto) Eos # (Auto) Baso # (Auto) Abs Immat Gran (auto) Absolute Neuts (auto) Absolute Nucleated RBC Nucleated RBC % (auto) PT INR VBG pH VBG pCO2 VBG pO2 VBG HCO3 VBG O2 Saturation VBG Base Excess Sodium 142 Potassium 4.9 Chloride 106 Carbon Dioxide 18 L Anion Gap 23 H BUN 71 H Creatinine 2.77 H Estim Creat Clear Calc 25.6 Estimated GFR 23 Random Glucose 97 Lactic Acid Lactic Acid F/U @ 2Hr Uric Acid Calcium 11.4 H D Phosphorus 5.1 H Magnesium Total Bilirubin Direct Bilirubin AST ALT Alkaline Phosphatase Lactate Dehydrogenase 1501 H Total Protein Albumin Lipase Carcinoembryonic Ag CA 19-9 Antigen Prostate Specific Ag 25-OH Vitamin D Total PTH Intact <6 L Calcium (PTH Intact) 12.0 H Urine Color Urine Appearance Urine pH Ur Specific [place] Urine Protein Urine Glucose (UA) Urine Ketones Urine Blood Urine Nitrite Ur Leukocyte Esterase Urine RBC Urine WBC Ur Squamous Epith Cells Urine Bacteria Hyaline Casts Uric Pt Rasburicase COVID-19 ([facility]YLER) Negative COVID-19 Clin Com See Note 02/01/22 02/01/22 02/01/22 01:01 06:37 06:37 WBC RBC Hgb Hct MCV MCH MCHC RDW Plt Count MPV Immature Gran % (Auto) Neut % (Auto) Lymph % (Auto) [place] % (Auto) Eos % (Auto) Baso % (Auto) Lymph # (Auto) [place] # (Auto) Eos # (Auto) Baso # (Auto) Abs Immat Gran (auto) Absolute Neuts (auto) Absolute Nucleated RBC Nucleated RBC % (auto) PT INR VBG pH VBG pCO2 VBG pO2 VBG HCO3 VBG O2 Saturation VBG Base Excess Sodium 142 Potassium 5.1 Chloride 108 Carbon Dioxide 18 L Anion Gap 21 H BUN 70 H Creatinine 2.62 H Estim Creat Clear Calc 27.1 Estimated GFR 24 Random Glucose 88 Lactic Acid Lactic Acid F/U @ 2Hr Uric Acid Calcium 11.5 H Phosphorus 4.7 H Magnesium Total Bilirubin Direct Bilirubin AST ALT Alkaline Phosphatase Lactate Dehydrogenase Total Protein Albumin Lipase Carcinoembryonic Ag CA 19-9 Antigen Prostate Specific Ag 25-OH Vitamin D Total PTH Intact Calcium (PTH Intact) Urine Color Yellow Urine Appearance Clear Urine pH 5.0 Ur Specific [place] 1.015 Urine Protein Negative Urine Glucose (UA) Negative Urine Ketones Negative Urine Blood Negative Urine Nitrite Negative Ur Leukocyte Esterase Trace H Urine RBC 0-2 Urine WBC 6-10 H Ur Squamous Epith Cells 0-2 Urine Bacteria None Seen Hyaline Casts 6-10 Uric Pt Rasburicase 14.5 COVID-19 ([facility]ER) COVID-19 Clin Com 02/01/22 02/01/22 02/01/22 12:03 12:03 12:03 WBC RBC Hgb Hct MCV MCH MCHC RDW Plt Count MPV Immature Gran % (Auto) Neut % (Auto) Lymph % (Auto) [place] % (Auto) Eos % (Auto) Baso % (Auto) Lymph # (Auto) [place] # (Auto) Eos # (Auto) Baso # (Auto) Abs Immat Gran (auto) Absolute Neuts (auto) Absolute Nucleated RBC Nucleated RBC % (auto) PT 12.3 INR 1.1 VBG pH VBG pCO2 VBG pO2 VBG HCO3 VBG O2 Saturation VBG Base Excess Sodium 142 Potassium 5.4 H Chloride 108 Carbon Dioxide 18 L Anion Gap 21 H BUN 68 H Creatinine 2.48 H Estim Creat Clear Calc 28.6 Estimated GFR 26 Random Glucose 88 Lactic Acid Lactic Acid F/U @ 2Hr Uric Acid Calcium 11.7 H Phosphorus 4.4 Magnesium Total Bilirubin Direct Bilirubin AST ALT Alkaline Phosphatase Lactate Dehydrogenase Total Protein Albumin Lipase Carcinoembryonic Ag CA 19-9 Antigen Prostate Specific Ag 25-OH Vitamin D Total PTH Intact Calcium (PTH Intact) Urine Color Urine Appearance Urine pH Ur Specific [place] Urine Protein Urine Glucose (UA) Urine Ketones Urine Blood Urine Nitrite Ur Leukocyte Esterase Urine RBC Urine WBC Ur Squamous Epith Cells Urine Bacteria Hyaline Casts Uric Pt Rasburicase 12.1 COVID-19 ([facility]ER) COVID-19 Clin Com 02/02/22 02/02/22 02/02/22 05:45 05:45 05:45 WBC 9.9 RBC 3.87 L Hgb 11.4 L Hct 35.4 L MCV 91.5 MCH 29.5 MCHC 32.2 RDW 13.2 Plt Count 302 MPV 10.1 Immature Gran % (Auto) Neut % (Auto) Lymph % (Auto) [place] % (Auto) Eos % (Auto) Baso % (Auto) Lymph # (Auto) [place] # (Auto) Eos # (Auto) Baso # (Auto) Abs Immat Gran (auto) Absolute Neuts (auto) Absolute Nucleated RBC 0.000 Nucleated RBC % (auto) 0.0 PT INR VBG pH VBG pCO2 VBG pO2 VBG HCO3 VBG O2 Saturation VBG Base Excess Sodium 146 H Potassium 5.4 H Chloride 112 H Carbon Dioxide 17 L Anion Gap 22 H BUN 61 H Creatinine 2.21 H Estim Creat Clear Calc 32.1 Estimated GFR 29 Random Glucose 71 Lactic Acid Lactic Acid F/U @ 2Hr Uric Acid Calcium 11.6 H Phosphorus 4.1 Magnesium Total Bilirubin Direct Bilirubin AST ALT Alkaline Phosphatase Lactate Dehydrogenase 1767 H Total Protein Albumin Lipase Carcinoembryonic Ag CA 19-9 Antigen Prostate Specific Ag 25-OH Vitamin D Total PTH Intact Calcium (PTH Intact) Urine Color Urine Appearance Urine pH Ur Specific [place] Urine Protein Urine Glucose (UA) Urine Ketones Urine Blood Urine Nitrite Ur Leukocyte Esterase Urine RBC Urine WBC Ur Squamous Epith Cells Urine Bacteria Hyaline Casts Uric Pt Rasburicase 7.2 COVID-19 ([facility]ER) COVID-19 Clin Com 02/02/22 02/03/22 02/03/22 17:02 06:10 06:10 WBC 10.9 H RBC 3.73 L Hgb 11.0 L Hct 34.1 L MCV 91.4 MCH 29.5 MCHC 32.3 RDW 13.2 Plt Count 288 MPV 9.7 Immature Gran % (Auto) Neut % (Auto) Lymph % (Auto) [place] % (Auto) Eos % (Auto) Baso % (Auto) Lymph # (Auto) [place] # (Auto) Eos # (Auto) Baso # (Auto) Abs Immat Gran (auto) Absolute Neuts (auto) Absolute Nucleated RBC 0.000 Nucleated RBC % (auto) 0.0 PT INR VBG pH VBG pCO2 VBG pO2 VBG HCO3 VBG O2 Saturation VBG Base Excess Sodium 147 H 145 Potassium 5.0 4.8 Chloride 113 H 114 H Carbon Dioxide 15 L 16 L Anion Gap 24 H 20 BUN 54 H Creatinine 1.98 H Estim Creat Clear Calc 35.9 Estimated GFR 33 Random Glucose 81 Lactic Acid Lactic Acid F/U @ 2Hr Uric Acid Calcium 11.3 H 11.5 H Phosphorus 4.1 3.6 Magnesium Total Bilirubin Direct Bilirubin AST ALT Alkaline Phosphatase Lactate Dehydrogenase 1725 H 1612 H Total Protein Albumin Lipase Carcinoembryonic Ag CA 19-9 Antigen Prostate Specific Ag 25-OH Vitamin D Total PTH Intact Calcium (PTH Intact) Urine Color Urine Appearance Urine pH Ur Specific [place] Urine Protein Urine Glucose (UA) Urine Ketones Urine Blood Urine Nitrite Ur Leukocyte Esterase Urine RBC Urine WBC Ur Squamous Epith Cells Urine Bacteria Hyaline Casts Uric Pt Rasburicase COVID-19 ([facility]ER) COVID-19 Clin Com 02/03/22 02/03/22 02/03/22 06:10 06:10 08:32 WBC RBC Hgb Hct MCV MCH MCHC RDW Plt Count MPV Immature Gran % (Auto) Neut % (Auto) Lymph % (Auto) [place] % (Auto) Eos % (Auto) Baso % (Auto) Lymph # (Auto) [place] # (Auto) Eos # (Auto) Baso # (Auto) Abs Immat Gran (auto) Absolute Neuts (auto) Absolute Nucleated RBC Nucleated RBC % (auto) PT INR VBG pH VBG pCO2 VBG pO2 VBG HCO3 VBG O2 Saturation VBG Base Excess Sodium Potassium Chloride Carbon Dioxide Anion Gap BUN Creatinine Estim Creat Clear Calc Estimated GFR Random Glucose Lactic Acid 7.4 H* Lactic Acid F/U @ 2Hr 6.8 H* Uric Acid Calcium Phosphorus Magnesium Total Bilirubin Direct Bilirubin AST ALT Alkaline Phosphatase Lactate Dehydrogenase Total Protein Albumin Lipase Carcinoembryonic Ag CA 19-9 Antigen Prostate Specific Ag 25-OH Vitamin D Total PTH Intact Calcium (PTH Intact) Urine Color Urine Appearance Urine pH Ur Specific [place] Urine Protein Urine Glucose (UA) Urine Ketones Urine Blood Urine Nitrite Ur Leukocyte Esterase Urine RBC Urine WBC Ur Squamous Epith Cells Urine Bacteria Hyaline Casts Uric Pt Rasburicase 4.8 COVID-19 ([facility]YLER) COVID-19 Tappx Com 02/04/22 02/04/22 02/04/22 05:47 05:47 05:47 WBC RBC Hgb Hct MCV MCH MCHC RDW Plt Count MPV Immature Gran % (Auto) Neut % (Auto) Lymph % (Auto) [place] % (Auto) Eos % (Auto) Baso % (Auto) Lymph # (Auto) [place] # (Auto) Eos # (Auto) Baso # (Auto) Abs Immat Gran (auto) Absolute Neuts (auto) Absolute Nucleated RBC Nucleated RBC % (auto) PT INR VBG pH VBG pCO2 VBG pO2 VBG HCO3 VBG O2 Saturation VBG Base Excess Sodium 145 Potassium 4.8 Chloride 110 H Carbon Dioxide 17 L Anion Gap 23 H BUN 46 H Creatinine 1.84 H Estim Creat Clear Calc 38.6 Estimated GFR 36 Random Glucose 93 Lactic Acid 9.0 H* Lactic Acid F/U @ 2Hr Uric Acid Calcium 11.3 H Phosphorus 3.1 Magnesium 1.6 Total Bilirubin Direct Bilirubin AST ALT Alkaline Phosphatase Lactate Dehydrogenase 1605 H Total Protein Albumin Lipase Carcinoembryonic Ag CA 19-9 Antigen Prostate Specific Ag 25-OH Vitamin D Total PTH Intact Calcium (PTH Intact) Urine Color Urine Appearance Urine pH Ur Specific [place] Urine Protein Urine Glucose (UA) Urine Ketones Urine Blood Urine Nitrite Ur Leukocyte Esterase Urine RBC Urine WBC Ur Squamous Epith Cells Urine Bacteria Hyaline Casts Uric Pt Rasburicase 4.0 COVID-19 ([facility]ER) COVID-19 Clin Com Pending studies at discharge: Pending at discharge 02/02/22 16:13 Surgical Path [Surgical] [PTH] Routine 02/02/22 16:15 Cytology [PTH] Routine Discharge Plan Discharge Anticipated Discharge Date/Time: 02/04/22 13:19 Patient Disposition: Xfer Acute Care Hospital Discharge Diagnosis: tumor lysis syndrome due to high-grade lymphoma Referrals: Ry Contreras DO [Primary Care Provider] - 1 Week Discharge Medications: New heparin (porcine) 5,000 unit/mL Solution 5,000 unit subcut Q12H Qty: 25 0RF allopurinol 100 mg Tablet 100 mg PO Q8H Qty: 1 0RF Continued atorvastatin 40 mg tablet 1 tab PO DAILY Discontinued lisinopril 20 mg tablet 1 tab PO DAILY Discharge Orders: Discharge Order (Routine); Ordered 02/04/22 Ordered By: Eva Tellez Diet: Advance to usual diet Activity on Discharge: As tolerated Stand Alone Forms: Patient Portal Discharge page Care Plan Goals: lymphoma treatment Health Concerns: tumor lysis syndrome with acute kidney injury, hyperkalemia, and lactic acidosis; and humoral hypercalcemia, due to high-grade lymphoma Plan of Treatment: transfer to [facility] for inpatient induction chemotherapy Assessment: See Discharge Summary.
[2022-02-04 15:42] VITALS: BP 127/72; PULSE 69; RESP 18; TEMP 37.1; O2SAT 95
--- NOTE | 2022-02-04 15:46 | PM.PNNEP ---
Subjective Subjective Date of Service: 02/04/22 Interval history: Seen and examimed, events noted Physical Exam Vital Signs: Vital Signs: Last Vital Signs Temp 98.8 F 02/04/22 15:42 Pulse 69 02/04/22 15:42 Resp 18 02/04/22 15:42 BP 127/72 02/04/22 15:42 Pulse Ox 95 02/04/22 15:42 O2 Del Method 02/04/22 15:42 BMI result Body Mass Index 25.0 Const: Other: Looks ill chronically Pale, sallow HEENT: Other: NOrmal exam, PERRLA and EOM normal Neck: Other: NO adenopathy Chest: Other: Clear to auscultation Cardio: Other: RRR, hyperdynamic, no murmur, no JVD, no rub GI: Other: Abdominal distension, soft and nontender to palpation with normal bowel sounds, fluid wave is present Skin: Other: Pallor Neuro: Other: Oriented times 3 and appropriate drum drier operator are intact No focal weakness Extrem: Other: No leg edema noted Objective Data Labs CBC & Chem 7: 02/03/22 06:10 02/04/22 05:47 Labs: Laboratory Results - last 24 hr 02/04/22 02/04/22 02/04/22 05:47 05:47 05:47 Sodium 145 Potassium 4.8 Chloride 110 H Carbon Dioxide 17 L Anion Gap 23 H BUN 46 H Creatinine 1.84 H Estim Creat Clear Calc 38.6 Estimated GFR 36 Random Glucose 93 Lactic Acid 9.0 H* Calcium 11.3 H Phosphorus 3.1 Magnesium 1.6 Lactate Dehydrogenase 1605 H Uric Pt Rasburicase 4.0 Microbiology Microbiology Results: Microbiology 02/02/22 15:55 Ascites Fluid Gram Stain - Final 02/02/22 15:55 Ascites Fluid Routine Culture - Preliminary No growth to date. 02/02/22 15:55 Ascites Fluid Anaerobic Culture - Preliminary No growth to date. Procedures Date of Service Date of Service: 02/04/22 Assessment & Plan Assessment and plan (1) ARYA (acute kidney injury): Status: Acute (2) Acute hyperkalemia: Status: Acute (3) Metabolic acidosis: Status: Acute (4) Hypercalcemia: Status: Acute Plan 1. ARYA:multifact: c/w TLS, HyperCa and vol depletion along with ROSIE-I; Scr cont slow decr with IVF and decr CA and decr UA 2. HyperCa: d/t Ca and TLS and dehydration: decr w IVF and apparently recieved Zometa yesterday so anticiapte dedcr Ca in nest 1-2 days- 3. Hyperuricemia: s/p Uricase x 1 and excellent repsonse--now maitaind on allopurinol 4. TLS spontaneous d/t large tumor burden 5. Ques Obs uropathy despite absence of hydro can occuer in tumoers like this that prevent the ureter and renal pelvis from dilating d/t encasement--does not appear to be the case here 6. HyperK: d/t TLS and prioer ROSIE and ARYA--resolved for now 7. Type B-Lactic acidosis from Cancer Disc: at high risk for TLS recurrence with chemo given tumor burden and so will need aggressive IVF at tiime of chemo--so best to do it as inpt setting REC: cont to track UAL and K; can switch to IV NaHCO3 if HCO3 decr further; cont allopurinaol and will need to monitor closley after chemo for recurrent TLS risk is high Will follow clsoley with team Time Spent With Patient Time: Total time spent is greater than 50% in coordination of care (as documented) at patient's floor/unit and/or counseling patient: Progress Note: Quality Stroke Does the patient have a stroke diagnosis?: No
[2022-02-10 01:52] LABS: VITAMIN D (1,25 OH) D3 122 pg/mL; Vit D (1,25-Dihydroxy) Total 122 pg/mL (18-72); Vitamin D (1,25 OH) D2 <8 pg/mL
[2022-02-10 20:52] LABS: Parathyroid Hormone Related Pr 10 pg/mL (11-20)
== END 2022-02-04 17:30 | disposition short-term general hospital (02) | DRG 840 ==
LOC: HO.ED 14:29 → HO.EDOVER 15:42 → HO.IMC 02-02 11:37
PROVIDERS: Internal Medicine Nephrology; Physician Assistant; Radiology Diagnostic Radiology; Admitting Provider Physician Assistant; Emergency Provider Emergency Medicine; PCP Internal Medicine; Visit Provider Family Medicine
PROC: 0WBH3ZX Excision of Retroperitoneum, Percutaneous Approach, Diagnostic (ICD-10-PCS; principal; 2022-02-02 14:30)
DX: C83.73 Burkitt lymphoma, intra-abdominal lymph nodes (principal); E88.3 Tumor lysis syndrome; N17.9 Acute kidney failure, unspecified; E87.2 Acidosis; R18.8 Other ascites; I12.9 Hypertensive chronic kidney disease with stage 1 through stage 4 chronic kidney disease, or unspecified chronic kidney disease; E83.52 Hypercalcemia; E87.5 Hyperkalemia; N13.9 Obstructive and reflux uropathy, unspecified; D64.9 Anemia, unspecified; N18.30 Chronic kidney disease, stage 3 unspecified; E86.0 Dehydration; D63.1 Anemia in chronic kidney disease; D63.0 Anemia in neoplastic disease; E78.5 Hyperlipidemia, unspecified; Z20.822 Contact with and (suspected) exposure to COVID-19; Z79.899 Other long term (current) drug therapy
CPT/HCPCS: 36415; 49083; 49180; 74176; 77012; 80048; 80051; 80076; 81001; 82306; 82310; 82378; 82652; 82803; 83519; 83605; 83615; 83690; 83735; 83970; 84100; 84153; 84550; 85025; 85027; 85610; 86301; 87071; 87073; 87205; 87635; 88112; 88184; 88185; 88300; 88305; 88341; 88342; 88360; 93005; 94640; 99152; 99153; 99285; C1729; J2783; J3489